=== PATIENT | female | born 1955 | race Two or more races ===

== ENCOUNTER 2024-05-07 08:07 | Outpatient (RCR) | payer MEDICARE, MEDICAID, SELFPAY ==
[2024-05-06 09:36] LABS: Basophils % (Auto) 1 % (0-2.5); Eosinophils % (Auto) 0 % (0-10); Hematocrit 32.9 % (36.0-46.0); Hemoglobin 10.8 g/dL (12.0-16.0); Immature Granulocytes % (Auto) 1 % (0-0); Immature Granulocytes Auto 0.03 Thou/mm3 (0.00-0.00); Lymphocytes # (Auto) 2.1 Thou/mm3 (1.0-4.8); Lymphocytes % (Auto) 38 % (10-50); Mean Corpuscular HGB Conc 32.8 g/dl (31.0-37.0); Mean Corpuscular Hemoglobin 30.1 pg (25.0-35.0); Mean Corpuscular Volume 92 fL (80-100); Monocytes # (Auto) 1.1 Thou/mm3 (0.0-0.8); Monocytes % (Auto) 20 % (0-12); Neutrophils # (Auto) 2.3 Thou/mm3 (1.8-7.7); Neutrophils % (Auto) 41 % (37-80); Nucleated Red Blood Cell % 0 /100 WBC (0); Platelet Count 462 Thou/mm3 (140-440); RDW Standard Deviation 51.6 fL (36.4-46.3); Red Blood Count 3.59 Miln/mm3 (4.00-5.20); White Blood Count 5.5 Thou/mm3 (3.6-11.0)
[2024-05-06 09:58] LABS: Alanine Aminotransferase 15 U/L (10-49); Albumin, Serum 4.4 gm/dL (3.4-4.8); Albumin/Globulin Ratio 1.9 (1.2-2.2); Alkaline Phosphatase 71 U/L (46-116); Anion Gap 6 (7-16); Aspartate Amino Transferase 19 U/L (0-34); BUN/Creatinine Ratio 10 Ratio (12-20); Bilirubin,Total 0.3 mg/dL (0.3-1.2); Blood Urea Nitrogen 5 mg/dL (9-23); Calcium 9.6 mg/dL (8.3-10.6); Calcium (Corrected) 9.6 mg/dL (8.5-10.1); Carbon Dioxide 24.5 mMol/L (20.0-31.0); Chloride 107 mMol/L (98-107); Creatinine (Component) 0.5 mg/dL (0.6-1.3); Globulin 2.3 gm/dL (2.3-3.5); Glucose 96 mg/dL (74-106); Osmolality,Calculated 271 (275-295); Potassium 3.7 mMol/L (3.4-5.1); Sodium 137 mMol/L (136-145); Thyroid Stimulating Hormone 0.13 uIU/mL (0.55-4.78); Total Protein 6.7 gm/dL (5.7-8.2); eGFR > 60 See Note
== END 2024-05-23 23:59 | disposition home or self-care (01) ==
LOC: SCTC 08:07
PROVIDERS: PCP Nurse Practitioner Family; Referring Provider Nurse Practitioner Family; Visit Provider Internal Medicine Hematology & Oncology
DX: Z51.11 Encounter for antineoplastic chemotherapy (principal); C50.412 Malignant neoplasm of upper-outer quadrant of left female breast; Z17.421 Hormone receptor negative with human epidermal growth factor receptor 2 negative status; E03.9 Hypothyroidism, unspecified; I10 Essential (primary) hypertension; E78.00 Pure hypercholesterolemia, unspecified; R11.2 Nausea with vomiting, unspecified; K59.00 Constipation, unspecified
CPT/HCPCS: 36591; 80053; 84443; 85025; 96367; 96375; 96411; 96413; 96415; 96417; A4216; J1453; J1642; J3490; J7050; J9000; J9075; J9271

== ENCOUNTER → 2024-06-04 | Outpatient (CLI) | payer MEDICARE, MEDICAID, SELFPAY ==
--- NOTE | 2024-06-04 13:30 | ECHO_ITS ---
Transthoracic Echo Report Ht (in): 60 Wt (lb): 138 Exam Location: Echo Lab Status: Preadmit Pewter Fabricator: Silva Wiley Indications: Procedure Performed: BP: / HR: Rhythm: Sinus Technical Quality: Fair MEASUREMENTS (Male / Female) Normal Values 2D ECHO LV Diastolic Diameter PLAX 3.8 cm 4.2 - 5.9 / 3.9 - 5.3 cm LV Systolic Diameter PLAX 2.7 cm IVS Diastolic Thickness 1.0 cm 0.6 - 1.0 / 0.6 - 0.9 cm LVPW Diastolic Thickness 1.0 cm 0.6 - 1.0 / 0.6 - 0.9 cm LV Relative Wall Thickness 0.5 LVOT Diameter 1.9 cm LA Volume Index 21.8 cm?/m? 16 - 28 cm?/m? Ascending Aorta Diameter 3.1 cm M-MODE Aortic Root Diameter MM 3.0 cm LA Systolic Diameter MM 2.9 cm LA Ao Ratio MM 1.0 AV Cusp Separation MM 2.2 cm DOPPLER AV Peak Velocity 116.0 cm/s AV Peak Gradient 5.4 mmHg AV Mean Gradient 3.0 mmHg AV Velocity Time Integral 24.7 cm LVOT Peak Velocity 113.0 cm/s LVOT Peak Gradient 5.1 mmHg LVOT Velocity Time Integral 22.9 cm AV Area Cont Eq vti 2.6 cm? AV Area Cont Eq pk 2.8 cm? MV Peak Velocity 106.0 cm/s MV Peak Gradient 4.5 mmHg MV Mean Velocity 74.0 cm/s MV Mean Gradient 2.0 mmHg MV Area PHT 4.2 cm? Mitral E Point Velocity 74.7 cm/s Mitral A Point Velocity 113.0 cm/s Mitral E to A Ratio 0.7 LV E' Lateral Velocity 10.2 cm/s Mitral E to LV E' Lateral Ratio 7.3 LV E' Septal Velocity 8.7 cm/s Mitral E to LV E' Septal Ratio 8.6 FINDINGS Left Ventricle Normal left ventricular size, wall thickness, systolic function with no obvious regional wall motion abnormalities. The ejection fraction is visually estimated at 55-60%. Right Ventricle The right ventricle is normal in size and systolic function. Left Atrium The left atrium is normal by two-dimensional, color flow and Doppler imaging with no structural abnormalities, no thrombus formation present. Right Atrium The right atrium is normal by two-dimensional imaging, color flow and Doppler imaging with no struct ural abnormalities, no thrombus formation present. Atrial Septum The interatrial septum appears normal with no evidence of a shunt. Aorta The aorta is normal by two-dimensional, color flow and Doppler interrogation. Mitral Valve The mitral valve is normal by two-dimensional, color flow and Doppler interrogation. There is trace mitral valve regurgitation. Aortic Valve The aortic valve is trileaflet and normal by two-dimensional, color flow and Doppler interrogation. There is trace aortic valve regurgitation. Tricuspid Valve The tricuspid valve is normal by two-dimensional, color flow and Doppler interrogation. There is tra ce tricuspid valve regurgitation. Pulmonic Valve The pulmonic valve is normal by two-dimensional, color flow and Doppler interrogation. There is no significant pulmonic valve regurgitation. Vessels The pulmonary artery appears normal. The inferior vena cava pulmonary and hepatic veins appear prachi l. Pericardium The pericardium is normal by two-dimensional imaging. There is no significant pericardial effusion. CONCLUSIONS Indication: Malignant neoplasm female breast Normal LV size and function. Stage I diastolic dysfunction. Estimated EF 55-60% Normal RV size and function. Trace MR, TR, AI. Chandan Riley (Electronically Signed) Final Date: 04 June 2024 18:09
== END | disposition home or self-care (01) ==
LOC: SDIM 13:07
PROVIDERS: PCP Nurse Practitioner Family; Referring Provider Internal Medicine Hematology & Oncology; Visit Provider Internal Medicine Hematology & Oncology
DX: I08.3 Combined rheumatic disorders of mitral, aortic and tricuspid valves (principal); C50.112 Malignant neoplasm of central portion of left female breast
CPT/HCPCS: 93306

== ENCOUNTER → 2024-06-15 | Outpatient (CLI) | payer MEDICARE, MEDICAID, SELFPAY ==
--- NOTE | 2024-06-15 13:00 | XR_ITS ---
Examination: Breast ultrasound, unilateral, left complete Date and time of exam: June 15, 2024 1308 hours INDICATIONS: Positive for left breast cancer November 21, 2023, bilateral breast sonography October 15, 2023 left breast suspicious mass 3.9 x 4.2 x 4.0 cm Technique: Real-time francis scale ultrasonographic imaging performed left breast including all 4 quadrants as well as nipple retroareolar and axillary region. Findings: 1:00 focus of architectural distortion 17 x 6 mm IMPRESSION: Focus of probable architectural distortion 1:00 position left breast 3-6 month left breast sonography follow-up strongly recommended
== END | disposition home or self-care (01) ==
LOC: CDIM 12:41
PROVIDERS: PCP Nurse Practitioner Family; Referring Provider Internal Medicine Hematology & Oncology; Visit Provider Internal Medicine Hematology & Oncology
DX: C50.919 Malignant neoplasm of unspecified site of unspecified female breast (principal); C50.112 Malignant neoplasm of central portion of left female breast
CPT/HCPCS: 76641

== ENCOUNTER 2024-06-18 13:01 | Outpatient (RCR) | payer MEDICARE, MEDICAID, SELFPAY ==
[2024-05-27 15:52] LABS: Basophils % (Auto) 1 % (0-2.5); Eosinophils % (Auto) 1 % (0-10); Hematocrit 31.1 % (36.0-46.0); Hemoglobin 10.4 g/dL (12.0-16.0); Immature Granulocytes % (Auto) 1 % (0-0); Immature Granulocytes Auto 0.06 Thou/mm3 (0.00-0.00); Lymphocytes # (Auto) 2.3 Thou/mm3 (1.0-4.8); Lymphocytes % (Auto) 38 % (10-50); Mean Corpuscular HGB Conc 33.4 g/dl (31.0-37.0); Mean Corpuscular Hemoglobin 29.6 pg (25.0-35.0); Mean Corpuscular Volume 89 fL (80-100); Monocytes % (Auto) 17 % (0-12); Neutrophils # (Auto) 2.6 Thou/mm3 (1.8-7.7); Neutrophils % (Auto) 43 % (37-80); Nucleated Red Blood Cell % 0 /100 WBC (0); Platelet Count 366 Thou/mm3 (140-440); RDW Standard Deviation 51.1 fL (36.4-46.3); Red Blood Count 3.51 Miln/mm3 (4.00-5.20); White Blood Count 6.1 Thou/mm3 (3.6-11.0)
[2024-05-27 16:20] LABS: Alanine Aminotransferase 12 U/L (10-49); Albumin, Serum 4.5 gm/dL (3.4-4.8); Alkaline Phosphatase 64 U/L (46-116); Anion Gap 9 (7-16); Aspartate Amino Transferase 10 U/L (0-34); BUN/Creatinine Ratio 15 Ratio (12-20); Bilirubin,Total 0.2 mg/dL (0.3-1.2); Blood Urea Nitrogen 9 mg/dL (9-23); Calcium 9.7 mg/dL (8.3-10.6); Calcium (Corrected) 9.7 mg/dL (8.5-10.1); Carbon Dioxide 24.5 mMol/L (20.0-31.0); Chloride 106 mMol/L (98-107); Creatinine (Component) 0.6 mg/dL (0.6-1.3); Globulin 2.2 gm/dL (2.3-3.5); Glucose 102 mg/dL (74-106); Osmolality,Calculated 276 (275-295); Potassium 3.5 mMol/L (3.4-5.1); Sodium 139 mMol/L (136-145); Thyroid Stimulating Hormone 16.76 uIU/mL (0.55-4.78); Total Protein 6.7 gm/dL (5.7-8.2); eGFR > 60 See Note
[2024-06-15 15:45] LABS: Basophils % (Auto) 0 % (0-2.5); Eosinophils % (Auto) 0 % (0-10); Hematocrit 31.9 % (36.0-46.0); Hemoglobin 10.7 g/dL (12.0-16.0); Immature Granulocytes % (Auto) 2 % (0-0); Immature Granulocytes Auto 0.09 Thou/mm3 (0.00-0.00); Lymphocytes # (Auto) 1.6 Thou/mm3 (1.0-4.8); Lymphocytes % (Auto) 32 % (10-50); Mean Corpuscular HGB Conc 33.5 g/dl (31.0-37.0); Mean Corpuscular Hemoglobin 29.7 pg (25.0-35.0); Mean Corpuscular Volume 89 fL (80-100); Monocytes # (Auto) 0.9 Thou/mm3 (0.0-0.8); Monocytes % (Auto) 16 % (0-12); Neutrophils # (Auto) 2.6 Thou/mm3 (1.8-7.7); Neutrophils % (Auto) 50 % (37-80); Nucleated Red Blood Cell % 0 /100 WBC (0); Platelet Count 318 Thou/mm3 (140-440); RDW Standard Deviation 52.7 fL (36.4-46.3); White Blood Count 5.2 Thou/mm3 (3.6-11.0)
[2024-06-15 16:24] LABS: Alanine Aminotransferase 16 U/L (10-49); Albumin, Serum 4.6 gm/dL (3.4-4.8); Alkaline Phosphatase 66 U/L (46-116); Anion Gap 7 (7-16); Aspartate Amino Transferase 11 U/L (0-34); BUN/Creatinine Ratio 18 Ratio (12-20); Bilirubin,Total 0.2 mg/dL (0.3-1.2); Blood Urea Nitrogen 9 mg/dL (9-23); Calcium 9.8 mg/dL (8.3-10.6); Calcium (Corrected) 9.8 mg/dL (8.5-10.1); Carbon Dioxide 25.9 mMol/L (20.0-31.0); Chloride 107 mMol/L (98-107); Creatinine (Component) 0.5 mg/dL (0.6-1.3); Free T3 2.7 pg/mL (2.3-4.2); Globulin 2.3 gm/dL (2.3-3.5); Glucose 110 mg/dL (74-106); Osmolality,Calculated 279 (275-295); Potassium 3.7 mMol/L (3.4-5.1); Sodium 140 mMol/L (136-145); Thyroid Stimulating Hormone 1.44 uIU/mL (0.55-4.78); Total Protein 6.9 gm/dL (5.7-8.2); eGFR > 60 See Note
--- NOTE | 2024-06-21 15:55 | CTCFLWUP_ITS ---
Patient: MARYA GOLDEN : 1955 Page 5 of 6 FOLLOW UP NOTE DATE OF SERVICE: 06/15/2024 NAME: MARYA GOLDEN ACCOUNT: [id number] : 1955 AGE: 68 INTERVAL HISTORY: ONCOLOGY HISTORY: DIAGNOSIS: Malignant neoplasm of central portion of left female breast [ICD10] C50.112 DATE OF DIAGNOSIS: STAGE/TNM: TREATMENT HISTORY: Care?Plan Start?Date Cycle Day Intent TNBC?Pembro?17?cy?TaxCar?4?cy?AC?4?cy?Keynote?522 12/31/2023 1 21 Induction-Primary Reclast 12/25/2023 1 365 Palliative HISTORY OF PRESENT ILLNESS: Marya Golden is a 68-year-old SPA speaking female with history of hypothyroidism, hypertensio n has the following oncology history. patient is here for follow-up. She completed 4 cycles of Taxo l and carboplatin chemotherapy along with pembrolizumab. She has tolerated treatment well. She says she does not feel any pain in her breast anymore 06/11/2022: Ms. Golden had bilateral screening mammograms done 10/17/2022: Left breast diagnostic mammogram and ultrasound Ms. Golden was aware that she needs to have the biopsy done. Unfortunately she decided not to have it . The reason she states is that she is scared. 10/15/2023: Bilateral breast ultrasound? 11/21/2023: Ultrasound-guided percutaneous biopsy of the left breast nodule 12/05/2023: PET/CT scan? 12/06/2023: Left axillary ultrasound 12/09/2023: Bone density test 12/18/2023: Echocardiogram showed LVEF of 60-65%. 12/31/2023: Ms. Golden is started on neoadjuvant pembrolizumab, Taxol and carboplatin chemotherapy. OTHER MEDICAL HISTORY/CONDITIONS: Breast Cancer- infiltrating ductal carcinoma- dx 11/21/23 HTN Hyperlipidemia Hypothyroid Osteoarthritis Right ankle fracture repair - 15 yrs ago ?Clone Other Med Hx? FAMILY HISTORY: Sibling:?Twin?sister?-?breast?-?dx?55 ?Clone Family Hx? 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 MEDICATIONS: 1. Citracal + D Slow Release - 600 mg-12.5 mcg (500 unit) 1 tab one tab po twice a day 2. Compazine - 10 mg 1 tab Daily 3. diclofenac sodium - 1 % Four times a day 4. levothyroxine - 50 mcg 0.5 tab Daily 5. losartan - 100 mg 1 tab Daily 6. losartan - 50 mg 1 tab Daily 7. ondansetron - 4 mg tab Daily 8. ondansetron - 8 mg 1 tab 1 tablet every 8 hrs as needed 9. One A Day Vitamin - 1 tab Daily 10. Senna Plus - 8.6-50 mg 1 tab Daily 11. simvastatin - 20 mg 1 tab Every day before sleep 12. TAB A MARIBELL - 1 tab Daily?Palabra Meds? Medications Last Reconciled by Dixie Liao MA on 04/15/2024 ALLERGIES: No Known Drug Allergies REVIEW OF SYSTEMS: A complete 14-point review of systems was performed and is negative except as noted in interval histo ry. PHYSICAL EXAMINATION: VITAL SIGNS: Temperature?98, B/P?130/88, Oxygen?Saturation?98% Weight?139?lbs (Change?since?05/28/24:? -1.8?lbs) PAIN: 0 - No pain GENERAL APPEARANCE: Appears well, in no apparent distress, appropriately interactive. HEENT: Normocephalic, no temporal wasting, normal conjunctiva, no scleral icterus, normal hearing, li ps without lesions, neck normal range of motion. CARDIOVASCULAR: Not assessed. PULMONARY: Normal respiratory effort, no respiratory distress or use of accessory muscles, speaking i n full sentences, no tachypnea. EXTREMITIES: No pedal edema or cyanosis. SKIN: Normal skin appearance. NEUROLOGIC: Alert and oriented x4. PSHYCHIATRIC: Appropriate affect, mood normal, behavior normal, intact thought and speech. 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 Patient is doing well with no palpable mass Patient will continue adjuvant Keytruda Referral to surgeon for procedure Patient want to get reconstruction #2 hypothyroidism iatrogenic Continue Levoxyl #3 hypertension hypercholesterolemia to be followed by PCP ORDERS: Referral placed to general surgery left breast surgery MYRTLE Endocrine referral for hypothyroidism Plastic surgeon for reconstruction Echocardiogram for follow-up as being on Herceptin which is a cardio toxic CBC CMP TSH T4 RETURN TO CLINIC: I will see her back in the clinic in 2 months. BILLING AND COMPLIANCE: I reviewed external records from providers outside my specialty as summarized above. I spent a total of 50 minutes on this patient?s care on the day of their visit excluding time spent related to any bi lled procedures. This time includes time spent with the patient as well as time spent documenting in the medical record, reviewing patients records and tests, obtaining history, placing orders, communi cating with other healthcare professionals, counseling the patient, family or caregiver, and/or care coordination for the diagnoses above. Electronically Signed by: Neri Frank MD T: 3:52 PM CC: PCP: Neri Frank Referring: Neri Frank This document was completed utilizing speech recognition software. Grammatical errors, random word in sertions, pronoun errors, and incomplete sentences are an occasional consequence of this system due t o software limitations, ambient noise, and hardware issues. Any formal questions or concerns about th e content, text or information contained within the body of this dictation should be directly address ed to the provider for clarification.
== END 2024-06-23 23:59 | disposition home or self-care (01) ==
LOC: SCTC 13:01
PROVIDERS: PCP Nurse Practitioner Family; Referring Provider Internal Medicine Hematology & Oncology; Visit Provider Internal Medicine Hematology & Oncology
DX: Z51.11 Encounter for antineoplastic chemotherapy (principal); C50.412 Malignant neoplasm of upper-outer quadrant of left female breast; Z17.421 Hormone receptor negative with human epidermal growth factor receptor 2 negative status; E03.9 Hypothyroidism, unspecified; I10 Essential (primary) hypertension; E78.00 Pure hypercholesterolemia, unspecified
CPT/HCPCS: 36591; 80053; 84443; 84481; 85025; 96367; 96411; 96413; 96417; 99213; A4216; J1100; J1453; J1642; J2405; J3490; J7040; J7050; J9000; J9075; J9271; G0463

== ENCOUNTER → 2024-07-08 | Outpatient (CLI) | payer MEDICARE, MEDICAID, SELFPAY ==
[2024-07-08 13:41] LABS: Basophils % (Auto) 1 % (0-2.5); Eosinophils # (Auto) 0.2 Thou/mm3 (0.0-0.5); Eosinophils % (Auto) 4 % (0-10); Hematocrit 35.5 % (36.0-46.0); Hemoglobin 11.6 g/dL (12.0-16.0); Immature Granulocytes % (Auto) 0 % (0-0); Immature Granulocytes Auto 0.02 Thou/mm3 (0.00-0.00); Lymphocytes # (Auto) 1.7 Thou/mm3 (1.0-4.8); Lymphocytes % (Auto) 31 % (10-50); Mean Corpuscular HGB Conc 32.7 g/dl (31.0-37.0); Mean Corpuscular Hemoglobin 29.3 pg (25.0-35.0); Mean Corpuscular Volume 90 fL (80-100); Monocytes # (Auto) 0.8 Thou/mm3 (0.0-0.8); Monocytes % (Auto) 14 % (0-12); Neutrophils # (Auto) 2.8 Thou/mm3 (1.8-7.7); Neutrophils % (Auto) 50 % (37-80); Nucleated Red Blood Cell % 0 /100 WBC (0); Platelet Count 240 Thou/mm3 (140-440); RDW Standard Deviation 54.4 fL (36.4-46.3); Red Blood Count 3.96 Miln/mm3 (4.00-5.20); White Blood Count 5.5 Thou/mm3 (3.6-11.0)
[2024-07-08 14:13] LABS: Alanine Aminotransferase 21 U/L (10-49); Albumin, Serum 4.5 gm/dL (3.4-4.8); Albumin/Globulin Ratio 2.3 (1.2-2.2); Alkaline Phosphatase 76 U/L (46-116); Anion Gap 8 (7-16); Aspartate Amino Transferase 18 U/L (0-34); BUN/Creatinine Ratio 18 Ratio (12-20); Bilirubin,Total 0.2 mg/dL (0.3-1.2); Blood Urea Nitrogen 11 mg/dL (9-23); Calcium 9.9 mg/dL (8.3-10.6); Calcium (Corrected) 9.9 mg/dL (8.5-10.1); Carbon Dioxide 27.1 mMol/L (20.0-31.0); Chloride 105 mMol/L (98-107); Creatinine (Component) 0.6 mg/dL (0.6-1.3); Glucose 101 mg/dL (74-106); Osmolality,Calculated 278 (275-295); Potassium 4.1 mMol/L (3.4-5.1); Sodium 140 mMol/L (136-145); Thyroid Stimulating Hormone 0.49 uIU/mL (0.55-4.78); Total Protein 6.5 gm/dL (5.7-8.2); eGFR > 60 See Note
== END | disposition home or self-care (01) ==
LOC: SCTO 11:55
PROVIDERS: PCP Nurse Practitioner Family; Referring Provider Internal Medicine Hematology & Oncology; Visit Provider Internal Medicine Hematology & Oncology
DX: E03.2 Hypothyroidism due to medicaments and other exogenous substances (principal); C50.112 Malignant neoplasm of central portion of left female breast
CPT/HCPCS: 36415; 80053; 84443; 85025

== ENCOUNTER 2024-07-09 08:07 | Outpatient (RCR) | payer MEDICARE, MEDICAID, SELFPAY | END 2024-07-24 23:59 | disposition home or self-care (01) | LOC: SCTC 08:07 | PROVIDERS: PCP Nurse Practitioner Family; Referring Provider Nurse Practitioner Family; Visit Provider Internal Medicine Hematology & Oncology | DX: Z51.11 Encounter for antineoplastic chemotherapy (principal); C50.412 Malignant neoplasm of upper-outer quadrant of left female breast; Z17.421 Hormone receptor negative with human epidermal growth factor receptor 2 negative status; E03.9 Hypothyroidism, unspecified; I10 Essential (primary) hypertension; E78.00 Pure hypercholesterolemia, unspecified | CPT/HCPCS: 96365; 96413; A4216; J1642; J9271 ==

== ENCOUNTER 2024-07-14 08:35 | Day surgery (SDC) | payer MEDICARE, MEDICAID, SELFPAY ==
[2024-07-13 11:01] VITALS: BMI 27.7
--- NOTE | 2024-07-13 11:24 | EKG_ITS ---
[facility] Test Date: 2024-07-13 Pat Name: MRAYA PONCE Department: Room: - Gender: Female Veneer Sawyer: PHILOMENA : 1955 Requested By: Jesus Nash Order Number: [id number] Reading MD: Jesus Nash Measurements Intervals [place] Rate: 68 P: 53 WV: 138 QRS: 54 QRSD: 61 T: 58 QT: 402 QTc: 428 Interpretive Statements SINUS RHYTHM Compared to ECG 12/02/2023 14:36:56 Sinus bradycardia no longer present /store/S0/[id number]/[id number].pdf
[2024-07-13 12:22] LABS: Basophils # (Auto) 0.1 Thou/mm3 (0.0-0.2); Basophils % (Auto) 1 % (0-2.5); Eosinophils # (Auto) 0.3 Thou/mm3 (0.0-0.5); Eosinophils % (Auto) 5 % (0-10); Hematocrit 36.9 % (36.0-46.0); Hemoglobin 12.1 g/dL (12.0-16.0); Immature Granulocytes % (Auto) 0 % (0-0); Immature Granulocytes Auto 0.02 Thou/mm3 (0.00-0.00); Lymphocytes % (Auto) 36 % (10-50); Mean Corpuscular HGB Conc 32.8 g/dl (31.0-37.0); Mean Corpuscular Hemoglobin 29.1 pg (25.0-35.0); Mean Corpuscular Volume 89 fL (80-100); Monocytes # (Auto) 0.7 Thou/mm3 (0.0-0.8); Monocytes % (Auto) 13 % (0-12); Neutrophils # (Auto) 2.5 Thou/mm3 (1.8-7.7); Neutrophils % (Auto) 44 % (37-80); Nucleated Red Blood Cell % 0 /100 WBC (0); Platelet Count 276 Thou/mm3 (140-440); RDW Standard Deviation 53.3 fL (36.4-46.3); Red Blood Count 4.16 Miln/mm3 (4.00-5.20); White Blood Count 5.6 Thou/mm3 (3.6-11.0)
[2024-07-13 12:28] LABS: Partial Thromboplastin Time 25.6 Seconds (22.0-36.0); Prothrombin Time 10.6 Seconds (9.0-12.2)
[2024-07-14] VITALS (12 sets, daily range): BP systolic 134–176; BP diastolic 87–117; PULSE 66–88; RESP 12–17; TEMP 36.2–36.8; O2SAT 96–99; BMI 27.1
--- NOTE | 2024-07-14 | XR_ITS ---
Examination: Mammogram breast tissue specimen TECHNIQUE: Single mammographic view of the breast tissue specimen Exam date and time: July 14, 2024 1421 hours INDICATIONS: Postop excision biopsy-positive lesion positive for carcinoma left breast 1:00 position with breast biopsy marker FINDINGS: Mammogram breast tissue specimen demonstrates the breast marker within the specimen with adequate margins IMPRESSION: Mammogram breast tissue specimen demonstrates the breast biopsy marker within the specimen with adequate margins
[2024-07-14] MEDS: RINGERS LACTATED 1000 ML 1,000 ML 20 ML IV (09:14)
[2024-07-14 09:21] LABS: Alanine Aminotransferase 21 U/L (10-49); Albumin, Serum 4.7 gm/dL (3.4-4.8); Albumin/Globulin Ratio 1.7 (1.2-2.2); Alkaline Phosphatase 81 U/L (46-116); Anion Gap 8 (7-16); Aspartate Amino Transferase 16 U/L (0-34); BUN/Creatinine Ratio 16 Ratio (12-20); Bilirubin,Total 0.4 mg/dL (0.3-1.2); Blood Urea Nitrogen 11 mg/dL (9-23); Calcium 10.3 mg/dL (8.3-10.6); Calcium (Corrected) 10.3 mg/dL (8.5-10.1); Chloride 106 mMol/L (98-107); Creatinine (Component) 0.7 mg/dL (0.6-1.3); Estimated Creatinine Clearance 63.8 mL/min (>60); Globulin 2.8 gm/dL (2.3-3.5); Glucose 110 mg/dL (74-106); Osmolality,Calculated 283 (275-295); Sodium 142 mMol/L (136-145); Total Protein 7.5 gm/dL (5.7-8.2); eGFR > 60 See Note
--- NOTE | 2024-07-14 10:17 | XR_ITS ---
Examination: Ultrasound-guided needle localization biopsy positive for carcinoma lesion 1:00 left breast Ultrasound left breast Exam date and time: July 14, 2024 1047 hours INDICATIONS: Preop surgical excision biopsy positive for carcinoma lesion 1:00 position left breast TECHNIQUE AND FINDINGS: Informed consent provided. Timeout performed. Skin prepped over the left breast sterile drape applied hand hygiene ultrasound sterile technique Utilizing ultrasonographic guidance and after administering local anesthesia with lidocaine, 5 cm Kopan's needle placed immediately at the breast marker 1:00 position left breast 1 cc methylene blue introduced Where introduced and needle withdrawn Estimated blood loss 1 cc IMPRESSION: Successful ultrasound-guided needle localization biopsy positive for carcinoma lesion 1:00 position left breast
--- NOTE | 2024-07-14 10:30 | XR_ITS ---
Examination: Nuclear medicine lymph glands imaging left breast [place] lymph node study Exam date and time: July 14, 2024 10:30 AM INDICATIONS: Left breast cancer diagnosis, post treatment, preop surgical resection at the breast marker site, lymph node dissection TECHNIQUE AND FINDINGS: Informed consent provided. Timeout performed. Skin prepped left breast in hygiene ultrasound sterile technique 1% lidocaine administered for local anesthesia is subareolar Introduction 2.0 mCi technetium 99m filtered sulfur colloid No imaging Estimated blood loss 0 cc IMPRESSION: Successful sentinel lymph node study left breast
--- NOTE | 2024-07-14 14:55 | SUR.PHASEI ---
6918 Patient arrived to recovery resting comfortably in [facility], drowsy and able to arouse with verbal prompting, breathing unlabored, vital signs stable, denies pain, dressing intact to chest; 10F SHAILA drain with drain sponge; contains serosanguineous fluid in drain, fluffs, breast binder, no bleeding noted, lung sounds clear upon auscultation, bilateral radial pulses present when palpated, report received from Jessica LOUIE and Dr. Menchaca
--- NOTE | 2024-07-14 14:56 | PD.SUROPNT ---
Date of Procedure 07/14/24 Pre Op Diagnosis Infiltrating ductal carcinoma of the left breast over the upper and outer quadrant treated with chemotherapy Post Op Diagnosis Same Procedure Guidewire localization and partial mastectomy of the left breast mass [place] node biopsy of the left axilla Findings Patient was found to have 1 sentinel node measuring about 1.5 cm in diameter on the axilla which was removed using a neoprobe. The lesion over the breast was some scar tissue along with the marker used at the time of biopsy which was Procedure Description The patient underwent guidewire localization of the lesion over the upper and outer quadrant of the left breast by Dr. Rudolph. Because of the neoadjuvant chemotherapy the palpable mass has completely disappeared and it is not even easily seen on the mammogram. However the residual cancer was going to be removed on therefore guidewire was placed in the x-ray suite. Patient also had a sentinel node injection of the left breast. Then she was brought to the operating room and LMA anesthesia was given. Timeout is performed. Incision was made over the left axilla for about 6 cm. Using neoprobe I was able to identify 1 lymph node deep in the left axilla probably in the level 1 area. Diligent search was made for any additional notes by using neoprobe but none was found. Then the axillary tissue was closed with 3-0 chromic for the deeper tissues and the skin was closed with 4-0 Monocryl. I injected local anesthesia with half percent Marcaine for analgesia before closing. Then attention was turned onto the breast where the guidewire was inserted over the left breast upper and outer quadrant. I made an incision parallel to the circumareolar area but is maybe a centimeter away from the circumareolar area. This incision was curved and was about 5 to 6 cm in length. Using retractors I dissected out the breast tissue and identified the methylene blue which was injected by the radiologist. Careful dissection was carried out without dislodging the guidewire. Patient is found to have some hardened scar tissue which I felt was representing the residual cancer. I removed tissues surrounding the guidewire tip as well as the hardened area on the breast. Specimen radiograph showed that the marker used by the radiologist was removed and right in the center of the specimen. Then bleeding points were controlled with cautery and left in #10 round Zaheer-Barclay in the breast. The deeper breast tissues could not be approximated because of the large cavity but the subcutaneous tissue was closed with 3-0 chromic. Skin was closed with 4-0 Monocryl after injecting half percent Marcaine for analgesia. Dressing was applied with Adaptic and fluff and compression with breast binder and patient tolerated the procedure well Anesthesia other Pathology / specimen Other (1. [place] node left axilla, #2 left breast tissue containing residual cancer and marker) IVF Infused 1,000 Estimated Blood Loss 100 Surgeon Nay Potter MD Surgical Staff Operation Date: 07/14/24 12:00 Case Staff Anesthesiologist: Darrick Menchaca supervisor coin machine: Belgica Rivera
[2024-07-14] MEDS: ACETAMINOPHEN IVPB 1,000 MG/100 ML VIAL 250 MG IV (15:56)
--- NOTE | 2024-07-14 16:36 | SUR.PHASEII ---
1636 Patient meets discharge criteria from recovery, awake and alert, breathing unlabored, vital signs stable, denies pain, dressing intact; no bleeding noted, patient and family educated on how to drain and care for SHAILA drain; both receptive, patient drinking water; tolerating well, denies nausea, patient assisted with dressing into her clothing by this program writer, discharge instructions given to patient and patients daughter/son, patient signed limited proficiency statement for daughter to label tacker [place] to her, daughter signed discharge instructions. Patient given all her belongings prior to discharge, transported via wheelchair and left in a private vehicle.
== END 2024-07-14 16:36 | disposition home or self-care (01) ==
LOC: S2EX 08:49 → SIRX 10:24
PROVIDERS: PCP Nurse Practitioner Family; Referring Provider Surgery; Visit Provider Surgery
PROC: (CPT 19125; principal; 2024-07-14 11:45)
DX: C50.412 Malignant neoplasm of upper-outer quadrant of left female breast (principal); Z01.812 Encounter for preprocedural laboratory examination
CPT/HCPCS: 38500; 19125; 36415; 76098; 80053; 85025; 85610; 85730; 93005; A4217; A4648; A4649; A9541; J0131; J1100; J1885; J2250; J2405; J2704; J3010; J3490; J7120

== ENCOUNTER → 2024-07-29 | Outpatient (CLI) | payer MEDICARE, MEDICAID, SELFPAY ==
[2024-07-29 13:43] LABS: Basophils % (Auto) 1 % (0-2.5); Eosinophils # (Auto) 0.2 Thou/mm3 (0.0-0.5); Eosinophils % (Auto) 3 % (0-10); Hematocrit 38.1 % (36.0-46.0); Hemoglobin 12.2 g/dL (12.0-16.0); Immature Granulocytes % (Auto) 0 % (0-0); Immature Granulocytes Auto 0.01 Thou/mm3 (0.00-0.00); Lymphocytes # (Auto) 1.6 Thou/mm3 (1.0-4.8); Lymphocytes % (Auto) 26 % (10-50); Mean Corpuscular Hemoglobin 28.6 pg (25.0-35.0); Mean Corpuscular Volume 89 fL (80-100); Monocytes # (Auto) 0.6 Thou/mm3 (0.0-0.8); Monocytes % (Auto) 9 % (0-12); Neutrophils # (Auto) 3.7 Thou/mm3 (1.8-7.7); Neutrophils % (Auto) 61 % (37-80); Nucleated Red Blood Cell % 0 /100 WBC (0); Platelet Count 259 Thou/mm3 (140-440); RDW Standard Deviation 51.5 fL (36.4-46.3); Red Blood Count 4.27 Miln/mm3 (4.00-5.20); White Blood Count 6.1 Thou/mm3 (3.6-11.0)
[2024-07-29 14:03] LABS: Alanine Aminotransferase 26 U/L (10-49); Albumin, Serum 4.4 gm/dL (3.4-4.8); Albumin/Globulin Ratio 1.8 (1.2-2.2); Alkaline Phosphatase 97 U/L (46-116); Anion Gap 8 (7-16); Aspartate Amino Transferase 23 U/L (0-34); BUN/Creatinine Ratio 15 Ratio (12-20); Bilirubin,Total 0.4 mg/dL (0.3-1.2); Blood Urea Nitrogen 9 mg/dL (9-23); Calcium 9.4 mg/dL (8.3-10.6); Calcium (Corrected) 9.4 mg/dL (8.5-10.1); Carbon Dioxide 26.6 mMol/L (20.0-31.0); Chloride 106 mMol/L (98-107); Creatinine (Component) 0.6 mg/dL (0.6-1.3); Globulin 2.4 gm/dL (2.3-3.5); Glucose 106 mg/dL (74-106); Osmolality,Calculated 279 (275-295); Potassium 4.2 mMol/L (3.4-5.1); Sodium 141 mMol/L (136-145); Total Protein 6.8 gm/dL (5.7-8.2); eGFR > 60 See Note
== END | disposition home or self-care (01) ==
PROVIDERS: Referring Provider Internal Medicine Hematology & Oncology; Visit Provider Internal Medicine Hematology & Oncology
DX: C50.112 Malignant neoplasm of central portion of left female breast (principal)
CPT/HCPCS: 36415; 80053; 85025

== ENCOUNTER → 2024-08-04 | Outpatient (CLI) | payer MEDICARE, MEDICAID, SELFPAY ==
[2024-08-04 11:43] LABS: Basophils % (Auto) 1 % (0-2.5); Eosinophils # (Auto) 0.3 Thou/mm3 (0.0-0.5); Eosinophils % (Auto) 6 % (0-10); Hematocrit 36.2 % (36.0-46.0); Hemoglobin 11.8 g/dL (12.0-16.0); Immature Granulocytes % (Auto) 0 % (0-0); Immature Granulocytes Auto 0.02 Thou/mm3 (0.00-0.00); Lymphocytes % (Auto) 39 % (10-50); Mean Corpuscular HGB Conc 32.6 g/dl (31.0-37.0); Mean Corpuscular Hemoglobin 28.7 pg (25.0-35.0); Mean Corpuscular Volume 88 fL (80-100); Monocytes # (Auto) 0.5 Thou/mm3 (0.0-0.8); Monocytes % (Auto) 9 % (0-12); Neutrophils # (Auto) 2.2 Thou/mm3 (1.8-7.7); Neutrophils % (Auto) 44 % (37-80); Nucleated Red Blood Cell % 0 /100 WBC (0); Platelet Count 275 Thou/mm3 (140-440); RDW Standard Deviation 49.1 fL (36.4-46.3); Red Blood Count 4.11 Miln/mm3 (4.00-5.20)
[2024-08-04 12:23] LABS: Alanine Aminotransferase 21 U/L (10-49); Albumin, Serum 4.3 gm/dL (3.4-4.8); Albumin/Globulin Ratio 1.7 (1.2-2.2); Alkaline Phosphatase 81 U/L (46-116); Anion Gap 7 (7-16); Aspartate Amino Transferase 21 U/L (0-34); BUN/Creatinine Ratio 14 Ratio (12-20); Bilirubin,Total 0.3 mg/dL (0.3-1.2); Blood Urea Nitrogen 10 mg/dL (9-23); Carbon Dioxide 26.5 mMol/L (20.0-31.0); Chloride 109 mMol/L (98-107); Creatinine (Component) 0.7 mg/dL (0.6-1.3); Globulin 2.5 gm/dL (2.3-3.5); Glucose 82 mg/dL (74-106); Osmolality,Calculated 281 (275-295); Potassium 4.6 mMol/L (3.4-5.1); Sodium 142 mMol/L (136-145); Thyroid Stimulating Hormone 2.63 uIU/mL (0.55-4.78); Total Protein 6.8 gm/dL (5.7-8.2); eGFR > 60 See Note
== END | disposition home or self-care (01) ==
PROVIDERS: PCP Nurse Practitioner Family; Referring Provider Internal Medicine Hematology & Oncology; Visit Provider Internal Medicine Hematology & Oncology
DX: C50.112 Malignant neoplasm of central portion of left female breast (principal)
CPT/HCPCS: 36415; 80053; 84443; 85025

== ENCOUNTER 2024-08-19 09:09 | Outpatient (CLI) | payer MEDICARE, MEDICAID, SELFPAY ==
[2024-08-19] VITALS (7 sets, daily range): BP systolic 120–153; BP diastolic 74–90; PULSE 59–67; RESP 16–21; TEMP 36.4–36.5; O2SAT 96–98; BMI 27.9
--- NOTE | 2024-08-19 10:00 | XR_ITS ---
Exam: Left port check/evaluation. DATE: 08/19/2024, 10:07 AM INDICATION: Port not working. Fluoroscopy time: 2.4 minutes Dose:2.4 18.42 mGy FINDINGS: After discussion of risks and benefits informed consent was obtained. Patient was brought to the angiography suite and placed supine on the exam table. The area around the existing left port was cleaned and draped in normal sterile surgical fashion. Preliminary fluoroscopic guidance demonstrate a left-sided port positioned within the left thorax with tubing appearing appropriately connected to the port. Port was accessed with a Chowdhury needle. No blood could be aspirated out. No normal saline or contrast could be injected into the port. Chowdhury needle was removed. IMPRESSION: Nonfunctioning port as above. Surgical consult is recommended.
--- NOTE | 2024-08-19 11:38 | PC.NURSE ---
1119 patient is awake, alert, breathing unlabored, s/p port check by dr valentino, patient discharged home with all belongings accompanied by daughter Jessy. Pt will make follow up appointment with surgeon who put port a cath in for further instructions.
== END 2024-08-19 11:19 | disposition home or self-care (01) ==
PROVIDERS: Referring Provider Internal Medicine Hematology & Oncology; Visit Provider Internal Medicine Hematology & Oncology
DX: T82.594A Other mechanical complication of infusion catheter, initial encounter (principal); C50.112 Malignant neoplasm of central portion of left female breast; C50.919 Malignant neoplasm of unspecified site of unspecified female breast
CPT/HCPCS: 36598; 77001; 82565; 84520; 85025; 85610; 85730; Q9967

== ENCOUNTER 2024-08-20 13:19 | Outpatient (RCR) | payer MEDICARE, MEDICAID, SELFPAY | END 2024-08-21 23:59 | disposition home or self-care (01) | LOC: SCTC 13:19 | PROVIDERS: PCP Nurse Practitioner Family; Referring Provider Internal Medicine Hematology & Oncology; Visit Provider Radiology Therapeutic Radiology | DX: Z51.11 Encounter for antineoplastic chemotherapy (principal); C50.412 Malignant neoplasm of upper-outer quadrant of left female breast; Z17.421 Hormone receptor negative with human epidermal growth factor receptor 2 negative status; Z90.12 Acquired absence of left breast and nipple | CPT/HCPCS: 77014; 77290; 77334; 96413; 99213; J7050; J9271; G0463 ==

== ENCOUNTER → 2024-08-20 | Outpatient (CLI) | payer MEDICARE, MEDICAID, SELFPAY ==
--- NOTE | 2024-08-20 14:30 | ECHO_ITS ---
Transthoracic Echo Report Ht (in): 60 Wt (lb): 143 Exam Location: Echo Lab Status: Preadmit Cable Television Installer: ZAFAR Reyes^^^^ Indications: Procedure Performed: BP: 128 / 74 HR: 74 Rhythm: Sinus Technical Quality: Fair MEASUREMENTS (Male / Female) Normal Values 2D ECHO LV Diastolic Diameter PLAX 3.6 cm 4.2 - 5.9 / 3.9 - 5.3 cm LV Systolic Diameter PLAX 2.2 cm IVS Diastolic Thickness 1.0 cm 0.6 - 1.0 / 0.6 - 0.9 cm LVPW Diastolic Thickness 1.0 cm 0.6 - 1.0 / 0.6 - 0.9 cm LV Relative Wall Thickness 0.6 LVOT Diameter 1.6 cm Aortic Root Diameter 2.9 cm LA Systolic Diameter LX 3.0 cm 3.0 - 4.0 / 2.7 - 3.8 cm LA Volume Index 31.2 cm?/m? 16 - 28 cm?/m? Ascending Aorta Diameter 2.9 cm DOPPLER AV Peak Velocity 144.0 cm/s AV Peak Gradient 8.3 mmHg AV Mean Gradient 5.0 mmHg AV Velocity Time Integral 38.4 cm AI Peak Velocity 289.0 cm/s AI Peak Gradient 33.4 mmHg AI Pressure Half Time 306.0 ms LVOT Peak Velocity 112.0 cm/s LVOT Peak Gradient 5.0 mmHg LVOT Velocity Time Integral 29.5 cm LVOT Cardiac Index 2615.7 cm?/min?m? AV Area Cont Eq vti 1.5 cm? AV Area Cont Eq pk 1.6 cm? MV Area PHT 2.5 cm? MR Peak Velocity 339.0 cm/s MR Peak Gradient 46.0 mmHg Mitral E Point Velocity 75.7 cm/s Mitral A Point Velocity 88.3 cm/s Mitral E to A Ratio 0.9 LV E' Lateral Velocity 11.1 cm/s Mitral E to LV E' Lateral Ratio 6.8 LV E' Septal Velocity 7.6 cm/s Mitral E to LV E' Septal Ratio 9.9 TR Peak Velocity 240.2 cm/s TR Peak Gradient 23.1 mmHg PV Peak Velocity 96.1 cm/s PV Peak Gradient 3.7 mmHg RVOT Peak Velocity 59.1 cm/s FINDINGS Left Ventricle Normal left ventricular size, wall thickness, systolic function with no obvious regional wall motion abnormalities. There is grade I diastolic dysfunction of the left ventricle (impaired relaxation pattern). The left ventricular ejection fraction is normal, estimated at 55-60%. Right Ventricle The right ventricle is normal in size and systolic function. The estimated right ventricular systolic pressure, 25 mmHg. Left Atrium The left atrium is normal by two-dimensional, color flow and Doppler imaging with no structural abnormalities, no thrombus formation present. Right Atrium The right atrium is normal by two-dimensional imaging, color flow and Doppler imaging with no structural abnormalities, no thrombus formation present. Atrial Septum The interatrial septum appears normal with no evidence of a shunt. Aorta The aorta is normal by two-dimensional, color flow and Doppler interrogation. Mitral Valve Mild mitral annular calcification. Mild mitral regurgitation. Aortic Valve Structurally normal aortic valve. Trace to mild aortic valve regurgitation. Tricuspid Valve There is mild tricuspid valve regurgitation. Pulmonic Valve Trivial pulmonic valve regurgitation. Vessels The pulmonary artery appears normal. The inferior vena cava pulmonary and hepatic veins appear normal. Pericardium The pericardium is normal by two-dimensional imaging. There is no significant pericardial effusion. CONCLUSIONS Indication: Malignant neoplasm Normal LV size and function. Estimated EF 55 to 60%. Mild LVH stage I diastolic dysfunction. Normal RV size and function. Estimated RVSP normal at 25 mmHg. Mild MAC with trace MR and mild TR. Chandan Riley (Electronically Signed) Final Date: 21 August 2024 05:11
== END | disposition home or self-care (01) ==
PROVIDERS: PCP Physician Assistant; Referring Provider Internal Medicine Hematology & Oncology; Visit Provider Internal Medicine Hematology & Oncology
DX: I08.1 Rheumatic disorders of both mitral and tricuspid valves (principal); C50.919 Malignant neoplasm of unspecified site of unspecified female breast; C50.112 Malignant neoplasm of central portion of left female breast
CPT/HCPCS: 93306

== ENCOUNTER → 2024-08-25 | Outpatient (CLI) | payer MEDICARE, MEDICAID, SELFPAY ==
[2024-08-25 09:38] LABS: Basophils % (Auto) 1 % (0-2.5); Eosinophils # (Auto) 0.2 Thou/mm3 (0.0-0.5); Eosinophils % (Auto) 4 % (0-10); Hematocrit 37.9 % (36.0-46.0); Hemoglobin 12.5 g/dL (12.0-16.0); Immature Granulocytes % (Auto) 0 % (0-0); Immature Granulocytes Auto 0.02 Thou/mm3 (0.00-0.00); Lymphocytes # (Auto) 2.3 Thou/mm3 (1.0-4.8); Lymphocytes % (Auto) 43 % (10-50); Mean Corpuscular Hemoglobin 28.7 pg (25.0-35.0); Mean Corpuscular Volume 87 fL (80-100); Monocytes # (Auto) 0.4 Thou/mm3 (0.0-0.8); Monocytes % (Auto) 8 % (0-12); Neutrophils # (Auto) 2.4 Thou/mm3 (1.8-7.7); Neutrophils % (Auto) 44 % (37-80); Nucleated Red Blood Cell % 0 /100 WBC (0); Platelet Count 255 Thou/mm3 (140-440); RDW Standard Deviation 45.2 fL (36.4-46.3); Red Blood Count 4.35 Miln/mm3 (4.00-5.20); White Blood Count 5.4 Thou/mm3 (3.6-11.0)
[2024-08-25 09:54] LABS: Alanine Aminotransferase 11 U/L (10-49); Albumin, Serum 4.2 gm/dL (3.4-4.8); Albumin/Globulin Ratio 1.8 (1.2-2.2); Alkaline Phosphatase 82 U/L (46-116); Anion Gap 7 (7-16); Aspartate Amino Transferase 18 U/L (0-34); BUN/Creatinine Ratio 13 Ratio (12-20); Bilirubin,Total 0.4 mg/dL (0.3-1.2); Blood Urea Nitrogen 9 mg/dL (9-23); Calcium 9.7 mg/dL (8.3-10.6); Calcium (Corrected) 9.7 mg/dL (8.5-10.1); Carbon Dioxide 27.9 mMol/L (20.0-31.0); Chloride 108 mMol/L (98-107); Creatinine (Component) 0.7 mg/dL (0.6-1.3); Globulin 2.4 gm/dL (2.3-3.5); Glucose 95 mg/dL (74-106); Osmolality,Calculated 283 (275-295); Potassium 4.4 mMol/L (3.4-5.1); Sodium 143 mMol/L (136-145); Thyroid Stimulating Hormone 6.29 uIU/mL (0.55-4.78); Total Protein 6.6 gm/dL (5.7-8.2); eGFR > 60 See Note
[2024-08-25 16:11] LABS: Free T4 (Free Thyroxine) 0.77 ng/dL (0.89-1.76)
[2024-09-03 06:48] LABS: Cortisol,total,LC/MS/MS* 7.2 mcg/dL; T3,Total* 85 ng/dL (76-181)
== END | disposition home or self-care (01) ==
LOC: SCTO 08:31
PROVIDERS: PCP Physician Assistant; Referring Provider Internal Medicine Hematology & Oncology; Visit Provider Internal Medicine Hematology & Oncology
DX: C50.112 Malignant neoplasm of central portion of left female breast (principal); E03.2 Hypothyroidism due to medicaments and other exogenous substances
CPT/HCPCS: 36415; 80053; 82533; 84439; 84443; 84480; 85025

== ENCOUNTER → 2024-09-15 | Outpatient (CLI) | payer OTHER, SELFPAY ==
[2024-09-15 11:36] LABS: Basophils % (Auto) 0 % (0-2.5); Eosinophils # (Auto) 0.2 Thou/mm3 (0.0-0.5); Eosinophils % (Auto) 3 % (0-10); Hematocrit 37.3 % (36.0-46.0); Hemoglobin 12.5 g/dL (12.0-16.0); Immature Granulocytes % (Auto) 0 % (0-0); Immature Granulocytes Auto 0.01 Thou/mm3 (0.00-0.00); Lymphocytes # (Auto) 1.6 Thou/mm3 (1.0-4.8); Lymphocytes % (Auto) 28 % (10-50); Mean Corpuscular HGB Conc 33.5 g/dl (31.0-37.0); Mean Corpuscular Hemoglobin 28.9 pg (25.0-35.0); Mean Corpuscular Volume 86 fL (80-100); Monocytes # (Auto) 0.5 Thou/mm3 (0.0-0.8); Monocytes % (Auto) 9 % (0-12); Neutrophils # (Auto) 3.4 Thou/mm3 (1.8-7.7); Neutrophils % (Auto) 59 % (37-80); Nucleated Red Blood Cell % 0 /100 WBC (0); Platelet Count 234 Thou/mm3 (140-440); RDW Standard Deviation 42.5 fL (36.4-46.3); Red Blood Count 4.33 Miln/mm3 (4.00-5.20); White Blood Count 5.6 Thou/mm3 (3.6-11.0)
[2024-09-15 11:58] LABS: Alanine Aminotransferase 16 U/L (10-49); Albumin, Serum 4.2 gm/dL (3.4-4.8); Albumin/Globulin Ratio 1.6 (1.2-2.2); Alkaline Phosphatase 81 U/L (46-116); Anion Gap 10 (7-16); Aspartate Amino Transferase 17 U/L (0-34); BUN/Creatinine Ratio 19 Ratio (12-20); Bilirubin,Total 0.4 mg/dL (0.3-1.2); Blood Urea Nitrogen 13 mg/dL (9-23); Calcium 10.1 mg/dL (8.3-10.6); Calcium (Corrected) 10.1 mg/dL (8.5-10.1); Chloride 105 mMol/L (98-107); Creatinine (Component) 0.7 mg/dL (0.6-1.3); Globulin 2.6 gm/dL (2.3-3.5); Glucose 115 mg/dL (74-106); Osmolality,Calculated 284 (275-295); Potassium 4.2 mMol/L (3.4-5.1); Sodium 142 mMol/L (136-145); Total Protein 6.8 gm/dL (5.7-8.2); eGFR > 60 See Note
[2024-09-15 16:26] LABS: T4 (Thyroxine) 9.8 mcg/dL (4.5-10.9)
[2024-09-21 06:58] LABS: T3,Total* 129 ng/dL (76-181)
== END | disposition home or self-care (01) ==
PROVIDERS: PCP Physician Assistant; Referring Provider Internal Medicine Hematology & Oncology; Visit Provider Internal Medicine Hematology & Oncology
DX: C50.112 Malignant neoplasm of central portion of left female breast (principal); E03.2 Hypothyroidism due to medicaments and other exogenous substances
CPT/HCPCS: 36415; 80053; 84436; 84443; 84480; 85025

== ENCOUNTER 2024-09-21 10:39 | Outpatient (RCR) | payer MEDICARE, MEDICAID, SELFPAY ==
--- NOTE | 2024-08-30 21:43 | CTCFLWUP_ITS ---
Patient: MARYA GOLDEN : 1955 Page 5 of 6 FOLLOW UP NOTE DATE OF SERVICE: 08/24/2024 NAME: MARYA GOLDEN ACCOUNT: [id number] : 1955 AGE: 69 INTERVAL HISTORY: Patient here for follow up . patient is on keytruda .tolerating well. Patient requesting to remove port catheter . catheter is blocked. 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 S/p ultrasound-guided biopsy (11/21/2023). Ms. Golden is started on neoadjuvant chemotherapy with pembrolizumab, Taxol and carboplatin on 12/31/2023 Hypothyroidism Hypertension Hypercholesterolemia Osteoporosis (DEXA scan 12/09/2023) DATE OF DIAGNOSIS: 11/21/2023 STAGE/TNM: Stage IIIa, triple negative, poorly differentiated infiltrating ductal carcinoma of the left breast with left axillary adenopathy. TREATMENT HISTORY: Care?Plan Start?Date Cycle Day Intent TNBC?Pembro?17?cy?TaxCar?4?cy?AC?4?cy?Keynote?522 12/31/2023 1 21 Induction-Primary Reclast 12/25/2023 1 365 Palliative HISTORY OF PRESENT ILLNESS: Marya Golden is a 69-year-old SPA speaking female with history of hypothyroidism, hypertension has the following oncology history. patient is here for follow-up. She completed 4 cycles of Taxol and carboplatin chemotherapy along with pembrolizumab. She has tolerated treatment well. She says she does not feel any pain in her breast anymore 06/11/2022: Ms. Golden had bilateral screening mammograms done 10/17/2022: Left breast diagnostic mammogram and ultrasound Ms. Golden was aware that she needs to have the biopsy done. Unfortunately she decided not to have it. The reason she states is that she is scared. 10/15/2023: Bilateral breast ultrasound? 11/21/2023: Ultrasound-guided percutaneous biopsy of the left breast nodule 12/05/2023: PET/CT scan? 12/06/2023: Left axillary ultrasound 12/09/2023: Bone density test 12/18/2023: Echocardiogram showed LVEF of 60-65%. 12/31/2023: Ms. Golden is started on neoadjuvant pembrolizumab, Taxol and carboplatin chemotherapy. 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 Tobacco?Use:?Denies ETOH?Use:?Denies Drug?Note:?Denies Social?History?Note:?Lives?with?husabdn STATISTICAL MODELER HISTORY: Menarche?-?Age:?17 Menopause:?age?50-50 :?8 Live?Births:?7 Age?1st?:?18 Gynecological?Note:?1?miscarraige MEDICATIONS: 1. Citracal + D Slow Release - 600 mg-12.5 mcg (500 unit) 1 tab one tab po twice a day 2. Compazine - 10 mg 1 tab Daily 3. levothyroxine - 50 mcg 0.5 tab Daily 4. levothyroxine - 50 mcg 1 tab Daily 5. levothyroxine - 75 mcg 1 tab Daily 6. losartan - 50 mg 1 tab Daily 7. losartan - 100 mg 1 tab Daily 8. ondansetron - 8 mg 1 tab 1 tablet every 8 hrs as needed 9. Senna Plus - 8.6-50 mg 1 tab Daily Medications Last Reconciled by Marya Valera MA on 08/24/2024 ALLERGIES: No Known Drug Allergies REVIEW OF SYSTEMS: A complete 14-point review of systems was performed and is negative except as noted in interval history. PHYSICAL EXAMINATION: VITAL SIGNS: Temperature?99, B/P?143/89, Oxygen?Saturation?96% Weight?144?lbs (Change?since?08/18/24:?2?lbs) PAIN: 0 - No pain ECOG Performance Status: 0 - Asymptomatic and fully active GENERAL APPEARANCE: Appears well, in no apparent distress, appropriately interactive. HEENT: Normocephalic, no temporal wasting, normal conjunctiva, no scleral icterus, normal hearing, lips without lesions, neck normal range of motion. CARDIOVASCULAR: Not assessed. PULMONARY: Normal respiratory effort, no respiratory distress or use of accessory muscles, speaking in full sentences, no tachypnea. EXTREMITIES: No pedal edema or cyanosis. SKIN: Normal skin appearance. NEUROLOGIC: Alert and oriented x4. PSHYCHIATRIC: Appropriate affect, mood normal, behavior normal, intact thought and speech. LABORATORY DATA: I have personally reviewed and interpreted each of the patient?s relevant lab tests, abnormal findings are below: Date 08/25/24 ??GLUCOSE,RANDOM?(mg/dL) 95 ??BLOOD?UREA?NITROGEN?(mg/dL) 9 ??CREATININE?(mg/dL) 0.70 ??SODIUM?(mmol/L) 143 ??POTASSIUM?(mmol/L) 4.4 ??CHLORIDE?(mmol/L) 108?H ??CrCl?(CandG)?(ml/min) 79.31 ??AST/SGOT?(Unit/L) 18 ??ALT/SGPT?(Unit/L) 11 ??ALKALINE?PHOSPHATASE?(Unit/L) 82 ??BILIRUBIN,?TOTAL?(mg/dL) 0.4 ??PROTEIN?TOTAL?(gm/dl) 6.6 ??ALBUMIN,?SERUM?(gm/dl) 4.2 ??GLOBULIN?(gm/dl) 2.4 ??ALBUMIN/GLOBULIN?RATIO 1.8 ??CALCIUM,?SERUM?(mg/dL) 9.7 ??CALCIUM?SERUM?(CORRECTED)?(mg/dL) 9.7 ASSESSMENT/PLAN: #1 stage II aT3 N1 M0 triple negative poorly differentiated infiltrating ductal carcinoma of left breast with axillary lymphadenopathy S/p ultrasound-guided guided biopsy in November 21, 2023 at least 7 cm mobile mass in the left breast no adenopathy in the axilla On neoadjuvant chemotherapy with keynote trial. Patient is doing well with no palpable mass Patient will continue adjuvant Keytruda for 1 year Referrel to remove port Referral to surgeon for procedure Patient want to get reconstruction #2 hypothyroidism iatrogenic Continue Levoxyl #3 hypertension hypercholesterolemia to be followed by PCP ORDERS: Cbc,cmp,tsh,t4 RETURN TO CLINIC: 1 year BILLING AND COMPLIANCE: I reviewed external records from providers outside my specialty as summarized above. I spent a total of 50 minutes on this patient?s care on the day of their visit excluding time spent related to any billed procedures. This time includes time spent with the patient as well as time spent documenting in the medical record, reviewing patients records and tests, obtaining history, placing orders, communicating with other healthcare professionals, counseling the patient, family or caregiver, and/or care coordination for the diagnoses above. Electronically Signed by: Neri Frank MD T: 9:41 PM CC: Yudy?GUERDA Locke PCP: Yudy Locke Referring: Yudy Locke This document was completed utilizing speech recognition software. Grammatical errors, random word insertions, pronoun errors, and incomplete sentences are an occasional consequence of this system due to software limitations, ambient noise, and hardware issues. Any formal questions or concerns about the content, text or information contained within the body of this dictation should be directly addressed to the provider for clarification.
== END 2024-09-21 23:59 | disposition home or self-care (01) ==
LOC: SCTC 10:39
PROVIDERS: PCP Physician Assistant; Referring Provider Physician Assistant; Visit Provider Internal Medicine Hematology & Oncology
DX: Z51.0 Encounter for antineoplastic radiation therapy (principal); Z51.11 Encounter for antineoplastic chemotherapy; C50.412 Malignant neoplasm of upper-outer quadrant of left female breast; Z17.421 Hormone receptor negative with human epidermal growth factor receptor 2 negative status; R59.0 Localized enlarged lymph nodes; E03.2 Hypothyroidism due to medicaments and other exogenous substances; I10 Essential (primary) hypertension; E78.00 Pure hypercholesterolemia, unspecified
CPT/HCPCS: 77280; 77290; 77295; 77300; 77332; 77334; 77336; 77412; 77417; 96413; 99212; 99424; 99425; J7050; J9271; G0463

== ENCOUNTER → 2024-10-06 | Outpatient (CLI) | payer MEDICARE, MEDICAID, SELFPAY ==
[2024-10-06 13:11] LABS: Basophils % (Auto) 1 % (0-2.5); Eosinophils # (Auto) 0.2 Thou/mm3 (0.0-0.5); Eosinophils % (Auto) 4 % (0-10); Hematocrit 39.9 % (36.0-46.0); Hemoglobin 12.8 g/dL (12.0-16.0); Immature Granulocytes % (Auto) 0 % (0-0); Immature Granulocytes Auto 0.02 Thou/mm3 (0.00-0.00); Lymphocytes # (Auto) 1.3 Thou/mm3 (1.0-4.8); Lymphocytes % (Auto) 26 % (10-50); Mean Corpuscular HGB Conc 32.1 g/dl (31.0-37.0); Mean Corpuscular Hemoglobin 28.6 pg (25.0-35.0); Mean Corpuscular Volume 89 fL (80-100); Monocytes # (Auto) 0.6 Thou/mm3 (0.0-0.8); Monocytes % (Auto) 12 % (0-12); Neutrophils # (Auto) 2.8 Thou/mm3 (1.8-7.7); Neutrophils % (Auto) 58 % (37-80); Nucleated Red Blood Cell % 0 /100 WBC (0); Platelet Count 245 Thou/mm3 (140-440); RDW Standard Deviation 43.7 fL (36.4-46.3); Red Blood Count 4.48 Miln/mm3 (4.00-5.20); White Blood Count 4.9 Thou/mm3 (3.6-11.0)
[2024-10-06 13:21] LABS: Alanine Aminotransferase 15 U/L (10-49); Albumin, Serum 4.3 gm/dL (3.4-4.8); Albumin/Globulin Ratio 1.6 (1.2-2.2); Alkaline Phosphatase 76 U/L (46-116); Anion Gap 9 (7-16); Aspartate Amino Transferase 18 U/L (0-34); BUN/Creatinine Ratio 20 Ratio (12-20); Bilirubin,Total 0.3 mg/dL (0.3-1.2); Blood Urea Nitrogen 12 mg/dL (9-23); Calcium 9.6 mg/dL (8.3-10.6); Calcium (Corrected) 9.6 mg/dL (8.5-10.1); Carbon Dioxide 28.2 mMol/L (20.0-31.0); Chloride 106 mMol/L (98-107); Creatinine (Component) 0.6 mg/dL (0.6-1.3); Globulin 2.7 gm/dL (2.3-3.5); Glucose 109 mg/dL (74-106); Osmolality,Calculated 285 (275-295); Potassium 4.2 mMol/L (3.4-5.1); Sodium 143 mMol/L (136-145); Thyroid Stimulating Hormone 0.22 uIU/mL (0.55-4.78); eGFR > 60 See Note
[2024-10-06 13:25] LABS: T4 (Thyroxine) 10.6 mcg/dL (4.5-10.9)
== END | disposition home or self-care (01) ==
PROVIDERS: PCP Physician Assistant; Referring Provider Internal Medicine Hematology & Oncology; Visit Provider Internal Medicine Hematology & Oncology
DX: C50.112 Malignant neoplasm of central portion of left female breast (principal)
CPT/HCPCS: 36415; 80053; 84436; 84443; 85025

== ENCOUNTER 2024-10-07 09:17 | Outpatient (RCR) | payer MEDICARE, MEDICAID, SELFPAY | END 2024-10-21 23:59 | disposition home or self-care (01) | LOC: SCTC 09:17 | PROVIDERS: PCP Physician Assistant; Referring Provider Physician Assistant; Visit Provider Internal Medicine Hematology & Oncology | DX: Z51.0 Encounter for antineoplastic radiation therapy (principal); Z51.11 Encounter for antineoplastic chemotherapy; C50.412 Malignant neoplasm of upper-outer quadrant of left female breast; Z17.421 Hormone receptor negative with human epidermal growth factor receptor 2 negative status | CPT/HCPCS: 77412; 96413; 99212; J7050; J9271; G0463 ==

== ENCOUNTER → 2024-10-27 | Outpatient (CLI) | payer MEDICARE, MEDICAID, SELFPAY ==
[2024-10-27 12:19] LABS: Basophils % (Auto) 1 % (0-2.5); Eosinophils # (Auto) 0.2 Thou/mm3 (0.0-0.5); Eosinophils % (Auto) 4 % (0-10); Hematocrit 38.4 % (36.0-46.0); Hemoglobin 12.8 g/dL (12.0-16.0); Immature Granulocytes % (Auto) 0 % (0-0); Immature Granulocytes Auto 0.02 Thou/mm3 (0.00-0.00); Lymphocytes # (Auto) 1.7 Thou/mm3 (1.0-4.8); Lymphocytes % (Auto) 33 % (10-50); Mean Corpuscular HGB Conc 33.3 g/dl (31.0-37.0); Mean Corpuscular Hemoglobin 28.7 pg (25.0-35.0); Mean Corpuscular Volume 86 fL (80-100); Monocytes # (Auto) 0.5 Thou/mm3 (0.0-0.8); Monocytes % (Auto) 10 % (0-12); Neutrophils # (Auto) 2.7 Thou/mm3 (1.8-7.7); Neutrophils % (Auto) 53 % (37-80); Nucleated Red Blood Cell % 0 /100 WBC (0); Platelet Count 248 Thou/mm3 (140-440); RDW Standard Deviation 43.6 fL (36.4-46.3); Red Blood Count 4.46 Miln/mm3 (4.00-5.20); White Blood Count 5.2 Thou/mm3 (3.6-11.0)
[2024-10-27 12:34] LABS: Alanine Aminotransferase 19 U/L (10-49); Albumin, Serum 4.3 gm/dL (3.4-4.8); Albumin/Globulin Ratio 1.5 (1.2-2.2); Alkaline Phosphatase 81 U/L (46-116); Anion Gap 6 (7-16); Aspartate Amino Transferase 20 U/L (0-34); BUN/Creatinine Ratio 16 Ratio (12-20); Bilirubin,Total 0.3 mg/dL (0.3-1.2); Blood Urea Nitrogen 11 mg/dL (9-23); Calcium 9.3 mg/dL (8.3-10.6); Calcium (Corrected) 9.3 mg/dL (8.5-10.1); Carbon Dioxide 25.6 mMol/L (20.0-31.0); Chloride 107 mMol/L (98-107); Creatinine (Component) 0.7 mg/dL (0.6-1.3); Globulin 2.8 gm/dL (2.3-3.5); Glucose 110 mg/dL (74-106); Osmolality,Calculated 277 (275-295); Potassium 4.2 mMol/L (3.4-5.1); Sodium 139 mMol/L (136-145); Thyroid Stimulating Hormone 1.55 uIU/mL (0.55-4.78); Total Protein 7.1 gm/dL (5.7-8.2); eGFR > 60 See Note
== END | disposition home or self-care (01) ==
LOC: SCTO 11:19
PROVIDERS: PCP Physician Assistant; Referring Provider Internal Medicine Hematology & Oncology; Visit Provider Internal Medicine Hematology & Oncology
DX: C50.112 Malignant neoplasm of central portion of left female breast (principal)
CPT/HCPCS: 36415; 80053; 84436; 84443; 85025

== ENCOUNTER → 2024-11-17 | Outpatient (CLI) | payer MEDICARE, MEDICAID, SELFPAY ==
[2024-11-17 11:52] LABS: Basophils % (Auto) 1 % (0-2.5); Eosinophils # (Auto) 0.2 Thou/mm3 (0.0-0.5); Eosinophils % (Auto) 3 % (0-10); Hematocrit 38.7 % (36.0-46.0); Hemoglobin 12.9 g/dL (12.0-16.0); Immature Granulocytes % (Auto) 0 % (0-0); Immature Granulocytes Auto 0.02 Thou/mm3 (0.00-0.00); Lymphocytes # (Auto) 1.7 Thou/mm3 (1.0-4.8); Lymphocytes % (Auto) 34 % (10-50); Mean Corpuscular HGB Conc 33.3 g/dl (31.0-37.0); Mean Corpuscular Hemoglobin 29.2 pg (25.0-35.0); Mean Corpuscular Volume 88 fL (80-100); Monocytes # (Auto) 0.5 Thou/mm3 (0.0-0.8); Monocytes % (Auto) 10 % (0-12); Neutrophils # (Auto) 2.7 Thou/mm3 (1.8-7.7); Neutrophils % (Auto) 53 % (37-80); Nucleated Red Blood Cell % 0 /100 WBC (0); Platelet Count 248 Thou/mm3 (140-440); RDW Standard Deviation 46.2 fL (36.4-46.3); Red Blood Count 4.42 Miln/mm3 (4.00-5.20); White Blood Count 5.1 Thou/mm3 (3.6-11.0)
[2024-11-17 11:59] LABS: Alanine Aminotransferase 17 U/L (10-49); Albumin, Serum 4.2 gm/dL (3.4-4.8); Albumin/Globulin Ratio 1.7 (1.2-2.2); Alkaline Phosphatase 80 U/L (46-116); Anion Gap 9 (7-16); Aspartate Amino Transferase 20 U/L (0-34); BUN/Creatinine Ratio 18 Ratio (12-20); Bilirubin,Total 0.4 mg/dL (0.3-1.2); Blood Urea Nitrogen 11 mg/dL (9-23); Carbon Dioxide 26.3 mMol/L (20.0-31.0); Chloride 107 mMol/L (98-107); Creatinine (Component) 0.6 mg/dL (0.6-1.3); Free T4 (Free Thyroxine) 0.86 ng/dL (0.89-1.76); Globulin 2.5 gm/dL (2.3-3.5); Glucose 115 mg/dL (74-106); Osmolality,Calculated 283 (275-295); Potassium 4.2 mMol/L (3.4-5.1); Sodium 142 mMol/L (136-145); Thyroid Stimulating Hormone 2.97 uIU/mL (0.55-4.78); Total Protein 6.7 gm/dL (5.7-8.2); eGFR > 60 See Note
== END | disposition home or self-care (01) ==
LOC: SCTO 10:07
PROVIDERS: PCP Physician Assistant; Referring Provider Internal Medicine Hematology & Oncology; Visit Provider Internal Medicine Hematology & Oncology
DX: C50.112 Malignant neoplasm of central portion of left female breast (principal); E03.9 Hypothyroidism, unspecified
CPT/HCPCS: 36415; 80053; 84439; 84443; 85025

== ENCOUNTER 2024-11-18 13:24 | Outpatient (RCR) | payer MEDICARE, MEDICAID, SELFPAY ==
--- NOTE | 2024-11-12 14:17 | CTCFLWUP_ITS ---
Patient: MARYA GOLDEN : 1955 Page 2 of 2 FOLLOW UP NOTE DATE OF SERVICE: 11/09/2024 NAME: MARYA GOLDEN ACCOUNT: [id number] : 1955 AGE: 69 INTERVAL HISTORY: Subjective: Chief Complaint Follow-up visit for breast cancer treatment History of Present Illness Chantel Yao, a patient with a history of triple-negative breast cancer, presents for follow-up after completing chemotherapy, radiation, and surgery. The patient reports feeling muy nerissa (very good) since the last visit. The patient has completed her cancer treatment regimen, including chemotherapy, radiation, and surgery. The surgery specimen showed no evidence of cancer. She is currently receiving immunotherapy, which is expected to continue for one year, with an anticipated completion date of December 09. The patient is also receiving yearly injections for her bones, which will continue for a total of 5 years. As a result of the immunotherapy, the patient has developed thyroid issues and is currently taking thyroid medication. This thyroid inflammation may be contributing to weight gain, which is also a common side effect in breast cancer patients due to hormone imbalances. The patient has been advised to be mindful of her diet. The patient has been diagnosed with generalized anxiety, though no specific symptoms or impact on daily functioning were discussed. She continues to adhere to her prescribed treatments, including the thyroid medication. Medications and Supplements - Immunotherapy - For one year - Treatment should be done by December 09 - Yearly injection for bones - To continue for 5 years - Thyroid medication - Due to immunotherapy - Can cause weight gain Review of Systems General: Positive for weight gain. Psychiatric: Positive for generalized anxiety. 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 S/p ultrasound-guided biopsy (11/21/2023). Ms. Golden is started on neoadjuvant chemotherapy with pembrolizumab, Taxol and carboplatin on 12/31/2023 Hypothyroidism Hypertension Hypercholesterolemia Osteoporosis (DEXA scan 12/09/2023) DATE OF DIAGNOSIS: 11/21/2023 STAGE/TNM: Stage IIIa, triple negative, poorly differentiated infiltrating ductal carcinoma of the left breast with left axillary adenopathy. TREATMENT HISTORY: Care?Plan Start?Date Cycle Day Intent TNBC?Pembro?17?cy?TaxCar?4?cy?AC?4?cy?Keynote?522 12/31/2023 1 21 Induction-Primary Reclast 12/25/2023 1 365 Palliative HISTORY OF PRESENT ILLNESS: Marya Golden is a 69-year-old SPA speaking female with history of hypothyroidism, hypertension has the following oncology history. patient is here for follow-up. She completed 4 cycles of Taxol and carboplatin chemotherapy along with pembrolizumab. She has tolerated treatment well. She says she does not feel any pain in her breast anymore 06/11/2022: Ms. Golden had bilateral screening mammograms done 10/17/2022: Left breast diagnostic mammogram and ultrasound Ms. Golden was aware that she needs to have the biopsy done. Unfortunately she decided not to have it. The reason she states is that she is scared. 10/15/2023: Bilateral breast ultrasound? 11/21/2023: Ultrasound-guided percutaneous biopsy of the left breast nodule 12/05/2023: PET/CT scan? 12/06/2023: Left axillary ultrasound 12/09/2023: Bone density test 12/18/2023: Echocardiogram showed LVEF of 60-65%. 12/31/2023: Ms. Golden is started on neoadjuvant pembrolizumab, Taxol and carboplatin chemotherapy. 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 Tobacco?Use:?Denies ETOH?Use:?Denies Drug?Note:?Denies Social?History?Note:?Lives?with?husabdn CATERING DIRECTOR HISTORY: Menarche?-?Age:?17 Menopause:?age?50-50 :?8 Live?Births:?7 Age?1st?:?18 Gynecological?Note:?1?miscarraige MEDICATIONS: 1. Citracal + D Slow Release - 600 mg-12.5 mcg (500 unit) 1 tab one tab po twice a day 2. Compazine - 10 mg 1 tab Daily 3. levothyroxine - 75 mcg 1 tab Daily 4. levothyroxine - 50 mcg 1 tab Daily 5. losartan - 100 mg 1 tab Daily 6. losartan - 50 mg 1 tab Daily 7. ondansetron - 8 mg 1 tab 1 tablet every 8 hrs as needed 8. Senna Plus - 8.6-50 mg 1 tab Daily Medications Last Reconciled by Dixie Liao MA on 11/09/2024 ALLERGIES: No Known Drug Allergies REVIEW OF SYSTEMS: A complete 14-point review of systems was performed and is negative except as noted in interval history. PHYSICAL EXAMINATION: VITAL SIGNS: PAIN: 0 - No pain ECOG Performance Status: 1 - Symptomatic; ambulatory; restricted in strenuous activity GENERAL APPEARANCE: Appears well, in no apparent distress, appropriately interactive. HEENT: Normocephalic, no temporal wasting, normal conjunctiva, no scleral icterus, normal hearing, lips without lesions, neck normal range of motion. CARDIOVASCULAR: Not assessed. PULMONARY: Normal respiratory effort, no respiratory distress or use of accessory muscles, speaking in full sentences, no tachypnea. EXTREMITIES: No pedal edema or cyanosis. SKIN: Normal skin appearance. NEUROLOGIC: Alert and oriented x4. PSHYCHIATRIC: Appropriate affect, mood normal, behavior normal, intact thought and speech. LABORATORY DATA: I have personally reviewed and interpreted each of the patient?s relevant lab tests, abnormal findings are below: Date 10/06/24 10/27/24 ??WHITE?BLOOD?COUNT?(Thou/mm3) 4.9 5.2 ??RED?BLOOD?COUNT?(Miln/mm3) 4.48 4.46 ??HEMOGLOBIN?(gm/dl) 12.8 12.8 ??HEMATOCRIT?(%) 39.9 38.4 ??PLATELET?COUNT?(Thou/mm3) 245 248 ??NEUTROPHILS?%,?AUTO?(%) 58 53 ??LYMPH?%,?AUTO?(%) 26 33 ??NEUTROPHILS,?AUTO?(Thou/mm3) 2.8 2.7 ??GLUCOSE,RANDOM?(mg/dL) 109?H 110?H ??BLOOD?UREA?NITROGEN?(mg/dL) 12 11 ??CREATININE?(mg/dL) 0.60 0.70 ??SODIUM?(mmol/L) 143 139 ??POTASSIUM?(mmol/L) 4.2 4.2 ??CHLORIDE?(mmol/L) 106 107 ??CrCl?(CandG)?(ml/min) 80.62 68.97 ??AST/SGOT?(Unit/L) 18 20 ??ALT/SGPT?(Unit/L) 15 19 ??ALKALINE?PHOSPHATASE?(Unit/L) 76 81 ??BILIRUBIN,?TOTAL?(mg/dL) 0.3 0.3 ??PROTEIN?TOTAL?(gm/dl) 7.0 7.1 ??ALBUMIN,?SERUM?(gm/dl) 4.3 4.3 ??GLOBULIN?(gm/dl) 2.7 2.8 ??ALBUMIN/GLOBULIN?RATIO 1.6 1.5 ??CALCIUM,?SERUM?(mg/dL) 9.6 9.3 ??CALCIUM?SERUM?(CORRECTED)?(mg/dL) 9.6 9.3 ASSESSMENT/PLAN: #1 stage II aT3 N1 M0 triple negative poorly differentiated infiltrating ductal carcinoma of left breast with axillary lymphadenopathy S/p ultrasound-guided guided biopsy in November 21, 2023 at least 7 cm mobile mass in the left breast no adenopathy in the axilla On neoadjuvant chemotherapy with keynote trial. Patient is doing well with no palpable mass Patient will continue adjuvant Keytruda for 1 year Assessment and Plan: Chantel Yao, female patient with history of triple negative breast cancer, status post chemotherapy, radiation, and surgery, currently on immunotherapy and thyroid medication. Breast Cancer (Triple Negative) Assessment: Patient has completed chemotherapy and radiation therapy for triple negative breast cancer. Surgical specimen showed no residual cancer. Currently on immunotherapy regimen scheduled to complete by December 09, 2024. Treatment plan includes yearly injection for bone health for 5 years. Prognosis is favorable, with 85% of patients being cancer-free at 5 years with this treatment protocol. Plan: - Continue immunotherapy until December 09, 2024 - Administer yearly injection for bone health, continue for 5 years - Initiate Natira testing (blood test for cancer cells) every 3 months - First test to be performed in clinic, subsequent tests at patient's home or in clinic per patient preference - Follow-up appointment in 2 months Thyroid Dysfunction Assessment: Patient is on thyroid medication due to immunotherapy-induced thyroid inflammation. This condition may be contributing to weight gain. Prognosis for thyroid function recovery is uncertain; patient may require lifelong thyroid medication. Plan: - Continue current thyroid medication - Monitor thyroid function with lab tests prior to immunotherapy administration - Consider endocrinology referral if needed Generalized Anxiety Disorder Assessment: Patient has been diagnosed with generalized anxiety disorder. No specific symptoms or severity discussed in this encounter. Plan: - Continue current management (specific interventions not discussed) Preventive Care Assessment: Patient requires ongoing cancer screening and preventive care. Plan: - Continue screening for colon cancer (frequency not specified) - Continue Pap smear screening (frequency not specified) Weight Management Assessment: Patient counseled on potential weight gain related to breast cancer treatment and hormone imbalance. Thyroid dysfunction may also be contributing to weight gain. Plan: - Educate patient on mindful eating habits #2 hypothyroidism iatrogenic Continue Levoxyl #3 hypertension hypercholesterolemia to be followed by PCP ORDERS: Order # Description [id number] CBC + Comprehensive Metabolic Panel [id number] Lab Appointment [id number] CBC + Comprehensive Metabolic Panel [id number] Lab Appointment [id number] CBC + Comprehensive Metabolic Panel [id number] Lab Appointment [id number] CBC + Comprehensive Metabolic Panel [id number] Lab Appointment [id number] CBC + Comprehensive Metabolic Panel [id number] Lab Appointment [id number] CBC + Comprehensive Metabolic Panel [id number] Lab Appointment [id number] CBC + Comprehensive Metabolic Panel [id number] Lab Appointment RETURN TO CLINIC: BILLING AND COMPLIANCE: I reviewed external records from providers outside my specialty as summarized above. I spent a total of 50 minutes on this patient?s care on the day of their visit excluding time spent related to any billed procedures. This time includes time spent with the patient as well as time spent documenting in the medical record, reviewing patients records and tests, obtaining history, placing orders, communicating with other healthcare professionals, counseling the patient, family or caregiver, and/or care coordination for the diagnoses above. Electronically Signed by: Neri Frank MD T: 1:19 PM CC: Yudy?GUERDA Locke PCP: Yudy Locke Referring: Yudy Locke This document was completed utilizing speech recognition software. Grammatical errors, random word insertions, pronoun errors, and incomplete sentences are an occasional consequence of this system due to software limitations, ambient noise, and hardware issues. Any formal questions or concerns about the content, text or information contained within the body of this dictation should be directly addressed to the provider for clarification.
== END 2024-11-21 23:59 | disposition home or self-care (01) ==
LOC: SCTC 13:24
PROVIDERS: PCP Physician Assistant; Referring Provider Physician Assistant; Visit Provider Internal Medicine Hematology & Oncology
DX: Z51.11 Encounter for antineoplastic chemotherapy (principal); C50.412 Malignant neoplasm of upper-outer quadrant of left female breast; Z17.421 Hormone receptor negative with human epidermal growth factor receptor 2 negative status; F41.1 Generalized anxiety disorder; R63.5 Abnormal weight gain; Z68.27 Body mass index [BMI] 27.0-27.9, adult; I10 Essential (primary) hypertension; E78.00 Pure hypercholesterolemia, unspecified; E03.9 Hypothyroidism, unspecified; Z79.890 Hormone replacement therapy
CPT/HCPCS: 96413; 99213; J7050; J9271; G0463

== ENCOUNTER → 2024-12-08 | Outpatient (CLI) | payer MEDICARE, MEDICAID, SELFPAY ==
[2024-12-08 10:59] LABS: Basophils % (Auto) 1 % (0-2.5); Eosinophils # (Auto) 0.2 Thou/mm3 (0.0-0.5); Eosinophils % (Auto) 3 % (0-10); Hematocrit 39.6 % (36.0-46.0); Hemoglobin 13.1 g/dL (12.0-16.0); Immature Granulocytes % (Auto) 0 % (0-0); Immature Granulocytes Auto 0.02 Thou/mm3 (0.00-0.00); Lymphocytes % (Auto) 32 % (10-50); Mean Corpuscular HGB Conc 33.1 g/dl (31.0-37.0); Mean Corpuscular Hemoglobin 29.1 pg (25.0-35.0); Mean Corpuscular Volume 88 fL (80-100); Monocytes # (Auto) 0.7 Thou/mm3 (0.0-0.8); Monocytes % (Auto) 11 % (0-12); Neutrophils # (Auto) 3.4 Thou/mm3 (1.8-7.7); Neutrophils % (Auto) 54 % (37-80); Nucleated Red Blood Cell % 0 /100 WBC (0); Platelet Count 242 Thou/mm3 (140-440); RDW Standard Deviation 46.7 fL (36.4-46.3); White Blood Count 6.3 Thou/mm3 (3.6-11.0)
[2024-12-08 11:28] LABS: Alanine Aminotransferase 20 U/L (10-49); Albumin, Serum 4.2 gm/dL (3.4-4.8); Albumin/Globulin Ratio 1.7 (1.2-2.2); Alkaline Phosphatase 80 U/L (46-116); Anion Gap 9 (7-16); Aspartate Amino Transferase 17 U/L (0-34); BUN/Creatinine Ratio 13 Ratio (12-20); Bilirubin,Total 0.4 mg/dL (0.3-1.2); Blood Urea Nitrogen 10 mg/dL (9-23); Calcium 9.3 mg/dL (8.3-10.6); Calcium (Corrected) 9.3 mg/dL (8.5-10.1); Carbon Dioxide 29.2 mMol/L (20.0-31.0); Chloride 104 mMol/L (98-107); Creatinine (Component) 0.8 mg/dL (0.6-1.3); Globulin 2.5 gm/dL (2.3-3.5); Glucose 112 mg/dL (74-106); Osmolality,Calculated 283 (275-295); Potassium 4.4 mMol/L (3.4-5.1); Sodium 142 mMol/L (136-145); Thyroid Stimulating Hormone 5.29 uIU/mL (0.55-4.78); Total Protein 6.7 gm/dL (5.7-8.2); eGFR > 60 See Note
[2024-12-11 06:09] LABS: T3,Total* 77 ng/dL (76-181)
== END | disposition home or self-care (01) ==
PROVIDERS: PCP Physician Assistant; Referring Provider Internal Medicine Hematology & Oncology; Visit Provider Internal Medicine Hematology & Oncology
DX: C50.112 Malignant neoplasm of central portion of left female breast (principal); E03.9 Hypothyroidism, unspecified
CPT/HCPCS: 36415; 80053; 84443; 84480; 85025

== ENCOUNTER 2024-12-09 07:24 | Outpatient (RCR) | payer MEDICARE, MEDICAID, SELFPAY ==
[2024-12-09 11:17] LABS: Free T4 (Free Thyroxine) 0.89 ng/dL (0.89-1.76)
== END 2024-12-21 23:59 | disposition home or self-care (01) ==
LOC: SCTC 07:24
PROVIDERS: PCP Family Medicine; Referring Provider Family Medicine; Visit Provider Internal Medicine Hematology & Oncology
DX: Z51.11 Encounter for antineoplastic chemotherapy (principal); C50.412 Malignant neoplasm of upper-outer quadrant of left female breast; Z17.421 Hormone receptor negative with human epidermal growth factor receptor 2 negative status; F41.1 Generalized anxiety disorder; E03.9 Hypothyroidism, unspecified; I10 Essential (primary) hypertension; E78.00 Pure hypercholesterolemia, unspecified
CPT/HCPCS: 84439; 96413; J7050; J9271

== ENCOUNTER → 2025-01-17 | Outpatient (CLI) | payer MEDICARE, MEDICAID, SELFPAY ==
--- NOTE | 2025-01-17 12:30 | ECHO_ITS ---
Transthoracic Echo Report Ht (in): 60 Wt (lb): 152 Exam Location: Echo Lab Status: Preadmit Valve And Regulator Repairer: Pamella Wilder Indications: Procedure Performed: BP: / HR: Technical Quality: Technically difficult study MEASUREMENTS (Male / Female) Normal Values 2D ECHO LV Diastolic Diameter PLAX 3.6 cm 4.2 - 5.9 / 3.9 - 5.3 cm LV Systolic Diameter PLAX 2.4 cm IVS Diastolic Thickness 1.1 cm 0.6 - 1.0 / 0.6 - 0.9 cm LVPW Diastolic Thickness 1.2 cm 0.6 - 1.0 / 0.6 - 0.9 cm LV Relative Wall Thickness 0.6 LVOT Diameter 1.5 cm Aortic Root Diameter 2.7 cm LV Ejection Fraction MOD BP 54.4 % >= 55 % LV Ejection Fraction MOD 4C 65.9 % LV Ejection Fraction 4C AL 67.0 % LV Ejection Fraction MOD 2C 43.1 % LV Ejection Fraction 2C AL 42.6 % LA Volume Index 18.2 cm?/m? 16 - 28 cm?/m? M-MODE Aortic Root Diameter MM 2.6 cm LA Systolic Diameter MM 2.4 cm LA Ao Ratio MM 0.9 AV Cusp Separation MM 2.0 cm DOPPLER AV Peak Velocity 113.5 cm/s AV Peak Gradient 5.2 mmHg AV Mean Gradient 3.0 mmHg AV Velocity Time Integral 28.5 cm LVOT Peak Velocity 92.5 cm/s LVOT Peak Gradient 3.4 mmHg LVOT Velocity Time Integral 23.0 cm AV Area Cont Eq vti 1.4 cm? AV Area Cont Eq pk 1.4 cm? MV Area PHT 3.7 cm? Mitral E Point Velocity 59.7 cm/s Mitral A Point Velocity 87.8 cm/s Mitral E to A Ratio 0.7 LV E' Lateral Velocity 10.7 cm/s Mitral E to LV E' Lateral Ratio 5.6 LV E' Septal Velocity 8.5 cm/s Mitral E to LV E' Septal Ratio 7.0 TR Peak Velocity 190.0 cm/s TR Peak Gradient 14.4 mmHg PV Peak Velocity 97.7 cm/s PV Peak Gradient 3.8 mmHg FINDINGS Left Ventricle Normal left ventricular size and systolic function with no obvious regional wall motion abnormalities. Mild LVH. The ejection fraction is visually estimated at 55-60%. There is grade I diastolic dysfunction of the left ventricle (impaired relaxation pattern). Right Ventricle The right ventricle is normal in size and systolic function. Left Atrium The left atrium is normal by two-dimensional, color flow and Doppler imaging with no structural abnormalities, no thrombus formation present. Right Atrium The right atrium is normal by two-dimensional imaging, color flow and Doppler imaging with no structural abnormalities, no thrombus formation present. Atrial Septum The interatrial septum appears normal with no evidence of a shunt. Aorta The aorta is normal by two-dimensional, color flow and Doppler interrogation. Mitral Valve The mitral valve is normal by two-dimensional, color flow and Doppler interrogation. There is no significant mitral valve regurgitation, stenosis or prolapse. Aortic Valve The aortic valve is trileaflet and normal by two-dimensional, color flow and Doppler interrogation. There is no significant aortic valve regurgitation. Tricuspid Valve The tricuspid valve is normal by two-dimensional, color flow and Doppler interrogation. There is trace tricuspid valve regurgitation. Pulmonic Valve The pulmonic valve is not well visualized. There is no significant pulmonic valve regurgitation. Vessels The pulmonary artery appears normal. The inferior vena cava pulmonary and hepatic veins appear normal. Pericardium The pericardium is normal by two-dimensional imaging. There is no significant pericardial effusion. CONCLUSIONS Indication: malignant neoplasm of central portion of left female breast Normal LV size and function. Mild LVH. Estimated EF at 55-60%. There is grade I diastolic dysfunction. The RV is normal in size and systolic function. Trace TR Dorys Kahn (Electronically Signed) Final Date: 18 January 2025 09:05
== END | disposition home or self-care (01) ==
LOC: SDIM 01-21 07:25
PROVIDERS: Referring Provider Internal Medicine Hematology & Oncology; Visit Provider Internal Medicine Hematology & Oncology
DX: I07.1 Rheumatic tricuspid insufficiency (principal); I50.31 Acute diastolic (congestive) heart failure; C50.112 Malignant neoplasm of central portion of left female breast
CPT/HCPCS: 93306

== ENCOUNTER 2025-02-15 10:54 | Outpatient (RCR) | payer MEDICARE, MEDICAID, SELFPAY ==
--- NOTE | 2025-02-18 13:14 | CTCFLWUP_ITS ---
Patient: MARYA GOLDEN : 1955 Page 2 of 2 FOLLOW UP NOTE DATE OF SERVICE: 02/15/2025 NAME: MARYA GOLDEN ACCOUNT: [id number] : 1955 AGE: 69 INTERVAL HISTORY: Subjective: Chief Complaint Follow-up visit for breast cancer treatment History of Present Illness Chantel Yao, a patient with a history of triple-negative breast cancer, presents for follow-up after completing chemotherapy, radiation, and surgery. The patient reports feeling muy nerissa (very good) since the last visit. The patient has completed her cancer treatment regimen, including chemotherapy, radiation, and surgery. The surgery specimen showed no evidence of cancer. She is currently receiving immunotherapy, which is expected to continue for one year, with an anticipated completion date of December 09. The patient is also receiving yearly injections for her bones, which will continue for a total of 5 years. As a result of the immunotherapy, the patient has developed thyroid issues and is currently taking thyroid medication. This thyroid inflammation may be contributing to weight gain, which is also a common side effect in breast cancer patients due to hormone imbalances. The patient has been advised to be mindful of her diet. The patient has been diagnosed with generalized anxiety, though no specific symptoms or impact on daily functioning were discussed. She continues to adhere to her prescribed treatments, including the thyroid medication. Medications and Supplements - Immunotherapy - For one year - Treatment should be done by December 09 - Yearly injection for bones - To continue for 5 years - Thyroid medication - Due to immunotherapy - Can cause weight gain Review of Systems General: Positive for weight gain. Psychiatric: Positive for generalized anxiety. Objective: Laboratory, Imaging, and Diagnostic Test Results - Surgery specimen: No cancer detected - Natira test: Planned for every 3 months (first test to be done at the clinic) ONCOLOGY HISTORY:?[facility] Hx? DIAGNOSIS: Malignant neoplasm of central portion of left female breast [ICD10] C50.112 Stage IIIa, triple negative, poorly differentiated infiltrating ductal carcinoma of the left breast with left axillary adenopathy. S/p ultrasound-guided biopsy (11/21/2023). Ms. Golden is started on neoadjuvant chemotherapy with pembrolizumab, Taxol and carboplatin on 12/31/2023 Hypothyroidism Hypertension Hypercholesterolemia Osteoporosis (DEXA scan 12/09/2023) DATE OF DIAGNOSIS: 11/21/2023 STAGE/TNM: Stage IIIa, triple negative, poorly differentiated infiltrating ductal carcinoma of the left breast with left axillary adenopathy. TREATMENT HISTORY: Care?Plan Start?Date Cycle Day Intent TNBC?Pembro?17?cy?TaxCar?4?cy?AC?4?cy?Keynote?522 12/31/2023 1 21 Induction-Primary Reclast 12/25/2023 1 365 Palliative HISTORY OF PRESENT ILLNESS: Marya Golden is a 69-year-old SPA speaking female with history of hypothyroidism, hypertension has the following oncology history. patient is here for follow-up. She completed 4 cycles of Taxol and carboplatin chemotherapy along with pembrolizumab. She has tolerated treatment well. She says she does not feel any pain in her breast anymore 06/11/2022: Ms. Golden had bilateral screening mammograms done 10/17/2022: Left breast diagnostic mammogram and ultrasound Ms. Golden was aware that she needs to have the biopsy done. Unfortunately she decided not to have it. The reason she states is that she is scared. 10/15/2023: Bilateral breast ultrasound? 11/21/2023: Ultrasound-guided percutaneous biopsy of the left breast nodule 12/05/2023: PET/CT scan? 12/06/2023: Left axillary ultrasound 12/09/2023: Bone density test 12/18/2023: Echocardiogram showed LVEF of 60-65%. 12/31/2023: Ms. Golden is started on neoadjuvant pembrolizumab, Taxol and carboplatin chemotherapy. 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 Tobacco?Use:?Denies ETOH?Use:?Denies Drug?Note:?Denies Social?History?Note:?Lives?with?husabdn [employer] DISPATCHER HISTORY: Menarche?-?Age:?17 Menopause:?age?[age] :?8 Live?Births:?7 Age?1st?:?18 Gynecological?Note:?1?miscarraige MEDICATIONS: 1. Citracal + D Slow Release - 600 mg-12.5 mcg (500 unit) 1 tab one tab po twice a day 2. Compazine - 10 mg 1 tab Daily 3. levothyroxine - 50 mcg 1 tab Daily 4. levothyroxine - 75 mcg 1 tab Daily 5. losartan - 100 mg 1 tab Daily 6. losartan - 50 mg 1 tab Daily 7. ondansetron - 8 mg 1 tab 1 tablet every 8 hrs as needed 8. Senna Plus - 8.6-50 mg 1 tab Daily?Palabra Meds? Medications Last Reconciled by Marya Garcia MD on 02/15/2025 ALLERGIES: No Known Drug Allergies REVIEW OF SYSTEMS: A complete 14-point review of systems was performed and is negative except as noted in interval history. PHYSICAL EXAMINATION:?[facility] PE? VITAL SIGNS: Temperature?98.2, B/P?123/79, Oxygen?Saturation?96% PAIN: 0 - No pain ECOG Performance Status: 0 - Asymptomatic and fully active GENERAL APPEARANCE: Appears well, in no apparent distress, appropriately interactive. HEENT: Normocephalic, no temporal wasting, normal conjunctiva, no scleral icterus, normal hearing, lips without lesions, neck normal range of motion. CARDIOVASCULAR: Not assessed. PULMONARY: Normal respiratory effort, no respiratory distress or use of accessory muscles, speaking in full sentences, no tachypnea. EXTREMITIES: No pedal edema or cyanosis. SKIN: Normal skin appearance. NEUROLOGIC: Alert and oriented x4. PSHYCHIATRIC: Appropriate affect, mood normal, behavior normal, intact thought and speech. LABORATORY DATA: I have personally reviewed and interpreted each of the patient?s relevant lab tests, abnormal findings are below: Date 12/08/24 02/15/25 ??WHITE?BLOOD?COUNT?(Thou/mm3) 6.3 6.1 ??RED?BLOOD?COUNT?(Miln/mm3) 4.50 4.49 ??HEMOGLOBIN?(gm/dl) 13.1 13.3 ??HEMATOCRIT?(%) 39.6 39.7 ??PLATELET?COUNT?(Thou/mm3) 242 247 ??NEUTROPHILS?%,?AUTO?(%) 54 54 ??LYMPH?%,?AUTO?(%) 32 33 ??NEUTROPHILS,?AUTO?(Thou/mm3) 3.4 3.3 ??GLUCOSE,RANDOM?(mg/dL) 112?H 110?H ??BLOOD?UREA?NITROGEN?(mg/dL) 10 9 ??CREATININE?(mg/dL) 0.80 0.70 ??SODIUM?(mmol/L) 142 141 ??POTASSIUM?(mmol/L) 4.4 4.4 ??CHLORIDE?(mmol/L) 104 106 ??CrCl?(CandG)?(ml/min) 60.70 69.90 ??AST/SGOT?(Unit/L) 17 18 ??ALT/SGPT?(Unit/L) 20 15 ??ALKALINE?PHOSPHATASE?(Unit/L) 80 79 ??BILIRUBIN,?TOTAL?(mg/dL) 0.4 0.3 ??PROTEIN?TOTAL?(gm/dl) 6.7 6.9 ??ALBUMIN,?SERUM?(gm/dl) 4.2 4.0 ??GLOBULIN?(gm/dl) 2.5 2.9 ??ALBUMIN/GLOBULIN?RATIO 1.7 1.4 ??CALCIUM,?SERUM?(mg/dL) 9.3 9.6 ??CALCIUM?SERUM?(CORRECTED)?(mg/dL) 9.3 9.6 ASSESSMENT/PLAN:?Robert Frank Assessment/Plan? #1 stage II aT3 N1 M0 triple negative poorly differentiated infiltrating ductal carcinoma of left breast with axillary lymphadenopathy S/p ultrasound-guided guided biopsy in November 21, 2023 at least 7 cm mobile mass in the left breast no adenopathy in the axilla On neoadjuvant chemotherapy with keynote trial. Patient is doing well with no palpable mass Patient will continue adjuvant Keytruda for 1 year Assessment and Plan: Chantel Yao, female patient with history of triple negative breast cancer, status post chemotherapy, radiation, and surgery, currently on immunotherapy and thyroid medication. Breast Cancer (Triple Negative) Assessment: Patient has completed chemotherapy and radiation therapy for triple negative breast cancer. Surgical specimen showed no residual cancer. Currently on immunotherapy regimen scheduled to complete by December 09, 2024. Treatment plan includes yearly injection for bone health for 5 years. Prognosis is favorable, with 85% of patients being cancer-free at 5 years with this treatment protocol. Completed immunotherapy in November 2024 Echo is stable thyroid Dysfunction Assessment: Patient is on thyroid medication due to immunotherapy-induced thyroid inflammation. This condition may be contributing to weight gain. Prognosis for thyroid function recovery is uncertain; patient may require lifelong thyroid medication. Plan: - Continue current thyroid medication - Monitor thyroid function with lab tests prior to immunotherapy administration - Consider endocrinology referral if needed Generalized Anxiety Disorder Assessment: Patient has been diagnosed with generalized anxiety disorder. No specific symptoms or severity discussed in this encounter. Plan: - Continue current management and follow-up with primary care Preventive Care Assessment: Patient requires ongoing cancer screening and preventive care. Plan: - Continue screening for colon cancer (frequency not specified) - Continue Pap smear screening (frequency not specified) Weight Management Assessment: Patient counseled on potential weight gain related to breast cancer treatment and hormone imbalance. Thyroid dysfunction may also be contributing to weight gain. Plan: - Educate patient on mindful eating habits #2 hypothyroidism iatrogenic Continue Levoxyl #3 hypertension hypercholesterolemia to be followed by PCP ORDERS: Order # Description [id number] 3D Mammogram Screening + Bilateral [id number] Comprehensive Metabolic Panel - 12 + CBC with Auto Diff + MD Follow Up 3 Months + [id number] Thyroid Stimulating Hormone + Assay Triiodothyronine (T3) RETURN TO CLINIC: I reviewed the diagnosis, prognosis, and recommended treatment/procedure options with the patient (and/or their legal patient account representative), including the potential benefits, risks, side effects and alternative therapies. We also discussed the option of no treatment and the possibility of clinical trial participation, if applicable. All questions were addressed, and they demonstrated understanding. They provided informed consent to proceed with the proposed plan of care. BILLING AND COMPLIANCE: I reviewed external records from providers outside my specialty as summarized above. I spent a total of 50 minutes on this patient?s care on the day of their visit excluding time spent related to any billed procedures. This time includes time spent with the patient as well as time spent documenting in the medical record, reviewing patients records and tests, obtaining history, placing orders, communicating with other healthcare professionals, counseling the patient, family or caregiver, and/or care coordination for the diagnoses above. Electronically Signed by: Neri Frank MD T: 1:12 PM CC: Shruthi? PCP: Neri Frank Referring: Yudy Locke This document was completed utilizing speech recognition software. Grammatical errors, random word insertions, pronoun errors, and incomplete sentences are an occasional consequence of this system due to software limitations, ambient noise, and hardware issues. Any formal questions or concerns about the content, text or information contained within the body of this dictation should be directly addressed to the provider for clarification.
== END 2025-02-21 23:59 | disposition home or self-care (01) ==
LOC: SCTC 10:54
PROVIDERS: PCP Physician Assistant; Referring Provider Physician Assistant; Visit Provider Internal Medicine Hematology & Oncology
DX: C50.412 Malignant neoplasm of upper-outer quadrant of left female breast (principal); Z17.421 Hormone receptor negative with human epidermal growth factor receptor 2 negative status; Z92.21 Personal history of antineoplastic chemotherapy; Z92.3 Personal history of irradiation; F41.1 Generalized anxiety disorder; E03.9 Hypothyroidism, unspecified; I10 Essential (primary) hypertension; E78.00 Pure hypercholesterolemia, unspecified
CPT/HCPCS: 99213; G0463

== ENCOUNTER → 2025-02-15 | Outpatient (CLI) | payer MEDICARE, MEDICAID, SELFPAY ==
[2025-02-15 10:31] LABS: Basophils # (Auto) 0.0 Thou/mm3 (0.0-0.2); Basophils % (Auto) 1 % (0-2.5); Eosinophils # (Auto) 0.2 Thou/mm3 (0.0-0.5); Eosinophils % (Auto) 3 % (0-10); Hematocrit 39.7 % (36.0-46.0); Hemoglobin 13.3 g/dL (12.0-16.0); Immature Granulocytes Auto 0.03 Thou/mm3 (0.00-0.00); Lymphocytes # (Auto) 2.0 Thou/mm3 (1.0-4.8); Lymphocytes % (Auto) 33 % (10-50); Mean Corpuscular HGB Conc 33.5 g/dl (31.0-37.0); Mean Corpuscular Hemoglobin 29.6 pg (25.0-35.0); Mean Corpuscular Volume 88 fL (80-100); Monocytes # (Auto) 0.6 Thou/mm3 (0.0-0.8); Monocytes % (Auto) 9 % (0-12); Neutrophils # (Auto) 3.3 Thou/mm3 (1.8-7.7); Neutrophils % (Auto) 54 % (37-80); Nucleated Red Blood Cell # 0.00 Thou/mm3 (0.00-0.00); Nucleated Red Blood Cell % 0 /100 WBC (0); Platelet Count 247 Thou/mm3 (140-440); RDW Standard Deviation 46.9 fL (36.4-46.3); Red Blood Count 4.49 Miln/mm3 (4.00-5.20); White Blood Count 6.1 Thou/mm3 (3.6-11.0)
[2025-02-15 10:52] LABS: Alanine Aminotransferase 15 U/L (10-49); Albumin, Serum 4.0 gm/dL (3.4-4.8); Albumin/Globulin Ratio 1.4 (1.2-2.2); Alkaline Phosphatase 79 U/L (46-116); Anion Gap 8 (7-16); Aspartate Amino Transferase 18 U/L (0-34); BUN/Creatinine Ratio 13 Ratio (12-20); Bilirubin,Total 0.3 mg/dL (0.3-1.2); Blood Urea Nitrogen 9 mg/dL (9-23); Calcium 9.6 mg/dL (8.3-10.6); Calcium (Corrected) 9.6 mg/dL (8.5-10.1); Carbon Dioxide 27.0 mMol/L (20.0-31.0); Chloride 106 mMol/L (98-107); Creatinine (Component) 0.7 mg/dL (0.6-1.3); Globulin 2.9 gm/dL (2.3-3.5); Glucose 110 mg/dL (74-106); Osmolality,Calculated 280 (275-295); Potassium 4.4 mMol/L (3.4-5.1); Sodium 141 mMol/L (136-145); Thyroid Stimulating Hormone 7.82 uIU/mL (0.55-4.78); Total Protein 6.9 gm/dL (5.7-8.2); eGFR > 60 See Note
[2025-02-15 11:13] LABS: CA 15-3 4.8 U/mL (<32.4)
[2025-02-18 06:35] LABS: T3,Total* 80 ng/dL (76-181)
== END | disposition home or self-care (01) ==
PROVIDERS: PCP Physician Assistant; Referring Provider Internal Medicine Hematology & Oncology; Visit Provider Internal Medicine Hematology & Oncology
DX: C50.919 Malignant neoplasm of unspecified site of unspecified female breast (principal); C50.112 Malignant neoplasm of central portion of left female breast
CPT/HCPCS: 36415; 80053; 84443; 84480; 85025; 86300

== ENCOUNTER → 2025-03-09 | Outpatient (CLI) | payer MEDICARE, MEDICAID, SELFPAY ==
--- NOTE | 2025-03-09 09:30 | XR_ITS ---
Examination: Screening digital mammography, bilateral Computer aided detection 3-D breast Tomosynthesis, bilateral Date and time of exam: March 09, 2025 0925 hours, compared to mammograms dating to June 11, 2022 Indication: Screening Technique: Nonmagnified MLO, CC views of the breasts to been obtained, reconstructed from 3-D Tomosynthesis images. R2 computer aided detection program utilized for evaluation of suspicious masses and/or abnormal calcifications. 3-D Tomosynthesis images obtained. Findings: Scattered areas of fibroid rather density. Increased radiodensity, scar formation skin thickening left breast consistent with patient's history treated left breast cancer Benign calcifications No interval suspicious masses Impression: BI-RADS category II: Benign Findings. Recommend 1 year follow-up mammogram. Given the patient's history of left breast cancer, consider baseline bilateral breast sonography follow-up
== END | disposition home or self-care (01) ==
LOC: CDIM 09:12
PROVIDERS: Referring Provider Internal Medicine Hematology & Oncology; Visit Provider Internal Medicine Hematology & Oncology
DX: Z12.31 Encounter for screening mammogram for malignant neoplasm of breast (principal); R92.323 Mammographic fibroglandular density, bilateral breasts; C50.919 Malignant neoplasm of unspecified site of unspecified female breast; C50.112 Malignant neoplasm of central portion of left female breast
CPT/HCPCS: 77063; 77067

== ENCOUNTER → 2025-04-30 | Outpatient (CLI) | payer MEDICARE, MEDICAID, SELFPAY ==
--- NOTE | 2025-04-30 10:30 | ECHO_ITS ---
Patient Info Name: Katharina Golden Age: 69 years : 1955 Gender: Female Ht: 147 cm Wt: 70 kg BSA: 1.73 m2 BP: 166 / 88 mmHg HR: 68 bpm Exam Date: 04/30/2025 10:38 AM Admit Date: 04/30/2025 Site: [facility] Room Number: ECHo Patient Status: O Exam Type: CA echo doppler complete Property Condition Assessor: Melisa Gonzalez Ordering Physician: Neri Frank Referring Physician: Neri Frank Study Info Indications Malignant neoplasm of central portion of left female breast - Primary Location: SDIM Left Ventricular Outflow Tract Name Value Normal LVOT 2D LVOT Diameter 1.8 cm LVOT Doppler LVOT Peak Velocity 92 cm/s LVOT Mean Gradient 2 mmHg LVOT VTI 25 cm LVOT VTI/AV VTI Ratio 0.8 LVOT Stroke Volume 63 ml Pulmonic Valve Name Value Normal PV Doppler PV Peak Velocity 95 cm/s PV Regurgitation Doppler AK Peak End Diastolic Velocity 140 cm/s Mitral Valve Name Value Normal MV Doppler MV Decel Flagler 392 cm/s2 MV PHT 58 ms MV Area (PHT) 3.8 cm2 4.0-5.0 MV Diastolic Function MV E Peak Velocity 79 cm/s MV A Peak Velocity 90 cm/s MV E/A 0.9 MV Annular TDI MV Septal e' Velocity 9.0 cm/s MV E/e' (Septal) 8.7 MV Lateral e' Velocity 9.5 cm/s MV E/e' (Lateral) 8.3 MV e' Average 9.25 cm/s MV E/e' (Average) 8.5 Tricuspid Valve Name Value Normal TV Regurgitation Doppler TR Peak Velocity 185 cm/s Estimated PAP/RSVP RA Pressure 3 mmHg <=5 PA Systolic Pressure 17 mmHg <36 RV Systolic Pressure 17 mmHg <36 TV Annular TDI TV Lateral Vidhi s' Velocity 11.2 cm/s >=9.5 Aortic Valve Name Value Normal AV 2D/MM AV Cusp Sep (MM) 1.4 cm AV Doppler AV Peak Velocity 123 cm/s AV Mean Gradient 4 mmHg AV VTI 32 cm AV Area (Cont Eq VTI) 2.0 cm2 >=3.0 AV Area (Cont Eq Zion) 1.9 cm2 AV DI (Zion) 0.74 AV Regurgitation 2D LVOT Area 2.5 cm2 Ventricles Name Value Normal LV Dimensions 2D/MM IVS Diastolic Thickness (2D) 0.8 cm 0.6-0.9 LVID Diastole (2D) 3.9 cm 3.8-5.2 LVIW Diastolic Thickness (2D) 0.9 cm 0.6-0.9 LVID Systole (2D) 2.2 cm 2.2-3.5 LVOT Diameter 1.8 cm LV Mass (2D Cubed) 97.36 g 67.00-162.00 LV Mass Index (2D Cubed) 56 g/m2 43-95 Relative Wall Thickness (2D) 0.46 <=0.42 IVS/LVIW Diastolic Thickness (2D) 0.89 0.00-1.50 LV Fractional Shortening/Ejection Fraction 2D/MM LV Fractional Shortening (2D) 44 % 27-45 LV EF (2D Teichholz) 75 % RV Dimensions 2D/MM TV Lateral Vidhi s' Velocity 11.2 cm/s >=9.5 Atria Name Value Normal LA Dimensions LA Volume (4C A-L) 37 ml LA Volume (BP A-L) 40 ml Left Ventricle Left ventricular chamber dimension is normal. Left ventricular systolic function is normal with visually estimated ejection fraction of 60-65%. There is mild concentric hypertrophy noted in the left ventricle. Left ventricular segmental wall motion is normal. There is normal diastolic function in the left ventricle. Right Ventricle Right ventricular chamber dimension is normal. Right ventricular systolic function is normal. Left Atrium Left atrial chamber dimension is normal. Right Atrium Right atrial chamber dimension is normal. Aortic Valve The aortic valve is trileaflet. There is no aortic valve sclerosis. There is no aortic valve stenosis with a peak velocity of 123 cm/s, mean gradient of 4 mmHg, and aortic valve area of 2.0 cm2. There is no aortic valve regurgitation. Pulmonic Valve The pulmonic valve is normal. There is no pulmonic valve stenosis. There is mild pulmonic regurgitation. Mitral Valve The mitral valve has normal leaflets. There is no mitral valve stenosis. There is no mitral valve regurgitation. Tricuspid Valve The tricuspid valve leaflets are normal. There is no tricuspid valve stenosis. There is trace tricuspid valve regurgitation. No pulmonary hypertension, estimated pulmonary arterial systolic pressure is 17 mmHg and systemic blood pressure of 166 mmHg in systole. Pericardium/Pleural The pericardium appears normal. There is no pericardial effusion. No pleural effusion visualized. Inferior Vena Cava Normal inferior vena cava with >50% collapse upon inspiration consistent with normal right atrial pressure, 3 mmHg. Aorta The aortic measurements are indexed to age and body surface area. The aortic root at the sinus of Valsalva is not well visualized. The prox ascending aorta is not well visualized. Summary 1. Left ventricle size is normal and systolic function is normal. Estimated ejection fraction is 60-65%. There is normal diastolic function. There is mild concentric hypertrophy noted. 2. Right ventricle chamber size is normal and systolic function is normal. Estimated RVSP is 17 mmHg. 3. There is trace tricuspid valve regurgitation. 4. mild pulmonic valve regurgitation. 5. Normal IVC with estimated RA pressure 3 mmHg. 6. compared to prior study 01/17/25 same. Report Signatures Finalized by Leonila Ch on 05/01/2025 12:53 AM
== END | disposition home or self-care (01) ==
LOC: SDIM 10:25
PROVIDERS: PCP Physician Assistant; Referring Provider Internal Medicine Hematology & Oncology; Visit Provider Internal Medicine Hematology & Oncology
DX: I08.1 Rheumatic disorders of both mitral and tricuspid valves (principal); I37.1 Nonrheumatic pulmonary valve insufficiency; I51.7 Cardiomegaly; C50.112 Malignant neoplasm of central portion of left female breast
CPT/HCPCS: 93306

== ENCOUNTER → 2025-05-17 | Outpatient (CLI) | payer MEDICARE, MEDICAID, SELFPAY ==
[2025-05-17 10:40] LABS: Basophils # (Auto) 0.1 Thou/mm3 (0.0-0.2); Basophils % (Auto) 1 % (0-2.5); Eosinophils # (Auto) 0.2 Thou/mm3 (0.0-0.5); Eosinophils % (Auto) 3 % (0-10); Hematocrit 41.5 % (36.0-46.0); Hemoglobin 13.8 g/dL (12.0-16.0); Immature Granulocytes Auto 0.03 Thou/mm3 (0.00-0.00); Lymphocytes # (Auto) 2.3 Thou/mm3 (1.0-4.8); Lymphocytes % (Auto) 37 % (10-50); Mean Corpuscular HGB Conc 33.3 g/dl (31.0-37.0); Mean Corpuscular Hemoglobin 29.1 pg (25.0-35.0); Mean Corpuscular Volume 87 fL (80-100); Monocytes # (Auto) 0.5 Thou/mm3 (0.0-0.8); Monocytes % (Auto) 8 % (0-12); Neutrophils # (Auto) 3.3 Thou/mm3 (1.8-7.7); Neutrophils % (Auto) 51 % (37-80); Nucleated Red Blood Cell # 0.00 Thou/mm3 (0.00-0.00); Nucleated Red Blood Cell % 0 /100 WBC (0); Platelet Count 244 Thou/mm3 (140-440); RDW Standard Deviation 43.4 fL (36.4-46.3); Red Blood Count 4.75 Miln/mm3 (4.00-5.20); White Blood Count 6.3 Thou/mm3 (3.6-11.0)
[2025-05-17 10:50] LABS: Alanine Aminotransferase 17 U/L (10-49); Albumin, Serum 4.6 gm/dL (3.4-4.8); Albumin/Globulin Ratio 1.6 (1.2-2.2); Alkaline Phosphatase 82 U/L (46-116); Anion Gap 9 (7-16); Aspartate Amino Transferase 20 U/L (0-34); BUN/Creatinine Ratio 14 Ratio (12-20); Bilirubin,Total 0.5 mg/dL (0.3-1.2); Blood Urea Nitrogen 10 mg/dL (9-23); Calcium 9.6 mg/dL (8.3-10.6); Calcium (Corrected) 9.6 mg/dL (8.5-10.1); Carbon Dioxide 27.7 mMol/L (20.0-31.0); Chloride 106 mMol/L (98-107); Creatinine (Component) 0.7 mg/dL (0.6-1.3); Free T4 (Free Thyroxine) 1.18 ng/dL (0.89-1.76); Globulin 2.8 gm/dL (2.3-3.5); Glucose 107 mg/dL (74-106); Osmolality,Calculated 283 (275-295); Potassium 4.4 mMol/L (3.4-5.1); Sodium 143 mMol/L (136-145); Thyroid Stimulating Hormone 0.09 uIU/mL (0.55-4.78); Total Protein 7.4 gm/dL (5.7-8.2); eGFR > 60 See Note
[2025-05-24 07:01] LABS: T3,Total* 137 ng/dL (76-181)
== END | disposition home or self-care (01) ==
LOC: COPL 09:17
PROVIDERS: PCP Nurse Practitioner Family; Referring Provider Nurse Practitioner Family; Visit Provider Internal Medicine Hematology & Oncology
DX: C50.919 Malignant neoplasm of unspecified site of unspecified female breast (principal); E03.9 Hypothyroidism, unspecified
CPT/HCPCS: 36415; 80053; 84439; 84443; 84480; 85025

== ENCOUNTER 2025-05-18 11:24 | Outpatient (RCR) | payer MEDICARE, MEDICAID, SELFPAY ==
--- NOTE | 2025-05-23 00:18 | CTCFLWUP_ITS ---
Patient: MARYA GOLDEN : 1955 Page 2 of 3 FOLLOW UP NOTE DATE OF SERVICE: 05/18/2025 NAME: MARYA GOLDEN ACCOUNT: [id number] : 1955 AGE: 69 INTERVAL HISTORY: Subjective: Patient doing well with no new complaints. Medications and Supplements - Immunotherapy - For one year - Treatment should be done by December 09 - Yearly injection for bones - To continue for 5 years - Thyroid medication - Due to immunotherapy - Can cause weight gain Review of Systems General: Positive for weight gain. Psychiatric: Positive for generalized anxiety. 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 S/p ultrasound-guided biopsy (11/21/2023). Ms. Golden is started on neoadjuvant chemotherapy with pembrolizumab, Taxol and carboplatin on 12/31/2023 Hypothyroidism Hypertension Hypercholesterolemia Osteoporosis (DEXA scan 12/09/2023) Complete response at the time of left partial mastectomy with sentinel lymph nodes on 07/14/2024 revealed a TT T0 N0 triple negative followed by 1 year of Keytruda DATE OF DIAGNOSIS: 11/21/2023 STAGE/TNM: Stage IIIa, triple negative, poorly differentiated infiltrating ductal carcinoma of the left breast with left axillary adenopathy. Completed keynote trial chemotherapy with immunotherapy on 12/09/2024. Had complete response at the time of surgery TREATMENT HISTORY: Care?Plan Start?Date Cycle Day Intent TNBC?Pembro?17?cy?TaxCar?4?cy?AC?4?cy?Keynote?522 12/31/2023 1 21 Induction-Primary Reclast 12/25/2023 1 365 Palliative HISTORY OF PRESENT ILLNESS: Marya Golden is a 69-year-old SPA speaking female with history of hypothyroidism, hypertension has the following oncology history. patient is here for follow-up. She completed 4 cycles of Taxol and carboplatin chemotherapy along with pembrolizumab. She has tolerated treatment well. She says she does not feel any pain in her breast anymore 06/11/2022: Ms. Golden had bilateral screening mammograms done 10/17/2022: Left breast diagnostic mammogram and ultrasound Ms. Golden was aware that she needs to have the biopsy done. Unfortunately she decided not to have it. The reason she states is that she is scared. 10/15/2023: Bilateral breast ultrasound? 11/21/2023: Ultrasound-guided percutaneous biopsy of the left breast nodule 12/05/2023: PET/CT scan? 12/06/2023: Left axillary ultrasound 12/09/2023: Bone density test 12/18/2023: Echocardiogram showed LVEF of 60-65%. 12/31/2023: Ms. Golden is started on neoadjuvant pembrolizumab, Taxol and carboplatin chemotherapy. 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 Tobacco?Use:?Denies ETOH?Use:?Denies Drug?Note:?Denies Social?History?Note:?Lives?with?husabdn CRATE ICER HISTORY: Menarche?-?Age:?17 Menopause:?age?[age] :?8 Live?Births:?7 Age?1st?:?18 Gynecological?Note:?1?miscarraige MEDICATIONS: 1. Citracal + D Slow Release - 600 mg-12.5 mcg (500 unit) 1 tab one tab po twice a day 2. Compazine - 10 mg 1 tab Daily 3. levothyroxine - 50 mcg 1 tab Daily 4. losartan - 100 mg 1 tab Daily 5. losartan - 50 mg 1 tab Daily 6. ondansetron - 8 mg 1 tab 1 tablet every 8 hrs as needed 7. Senna Plus - 8.6-50 mg 1 tab Daily Medications Last Reconciled by Marya Garcia MD on 05/18/2025 ALLERGIES: No Known Drug Allergies REVIEW OF SYSTEMS: A complete 14-point review of systems was performed and is negative except as noted in interval history. PHYSICAL EXAMINATION: VITAL SIGNS: Temperature?97.8, B/P?147/88, Oxygen?Saturation?96% Weight?154?lbs PAIN: 0 - No pain GENERAL APPEARANCE: Appears well, in no apparent distress, appropriately interactive. HEENT: Normocephalic, no temporal wasting, normal conjunctiva, no scleral icterus, normal hearing, lips without lesions, neck normal range of motion. CARDIOVASCULAR: Not assessed. PULMONARY: Normal respiratory effort, no respiratory distress or use of accessory muscles, speaking in full sentences, no tachypnea. EXTREMITIES: No pedal edema or cyanosis. SKIN: Normal skin appearance. NEUROLOGIC: Alert and oriented x4. PSHYCHIATRIC: Appropriate affect, mood normal, behavior normal, intact thought and speech. LABORATORY DATA: I have personally reviewed and interpreted each of the patient?s relevant lab tests, abnormal findings are below: Date 02/15/25 05/17/25 ??WHITE?BLOOD?COUNT?(Thou/mm3) 6.1 6.3 ??RED?BLOOD?COUNT?(Miln/mm3) 4.49 4.75 ??HEMOGLOBIN?(gm/dl) 13.3 13.8 ??HEMATOCRIT?(%) 39.7 41.5 ??PLATELET?COUNT?(Thou/mm3) 247 244 ??NEUTROPHILS?%,?AUTO?(%) 54 51 ??LYMPH?%,?AUTO?(%) 33 37 ??NEUTROPHILS,?AUTO?(Thou/mm3) 3.3 3.3 ??GLUCOSE,RANDOM?(mg/dL) 110?H 107?H ??BLOOD?UREA?NITROGEN?(mg/dL) 9 10 ??CREATININE?(mg/dL) 0.70 0.70 ??SODIUM?(mmol/L) 141 143 ??POTASSIUM?(mmol/L) 4.4 4.4 ??CHLORIDE?(mmol/L) 106 106 ??CrCl?(CandG)?(ml/min) 69.90 69.90 ??AST/SGOT?(Unit/L) 18 20 ??ALT/SGPT?(Unit/L) 15 17 ??ALKALINE?PHOSPHATASE?(Unit/L) 79 82 ??BILIRUBIN,?TOTAL?(mg/dL) 0.3 0.5 ??PROTEIN?TOTAL?(gm/dl) 6.9 7.4 ??ALBUMIN,?SERUM?(gm/dl) 4.0 4.6 ??GLOBULIN?(gm/dl) 2.9 2.8 ??ALBUMIN/GLOBULIN?RATIO 1.4 1.6 ??CALCIUM,?SERUM?(mg/dL) 9.6 9.6 ??CALCIUM?SERUM?(CORRECTED)?(mg/dL) 9.6 9.6 ASSESSMENT/PLAN: #1 stage II aT3 N1 M0 triple negative poorly differentiated infiltrating ductal carcinoma of left breast with axillary lymphadenopathy S/p ultrasound-guided guided biopsy in November 21, 2023 at least 7 cm mobile mass in the left breast no adenopathy in the axilla On neoadjuvant chemotherapy with keynote trial. Patient is doing well with no palpable mass Patient will continue adjuvant Keytruda for 1 year Assessment and Plan: Chantel MayersRhoda, female patient with history of triple negative breast cancer, status post chemotherapy, radiation, and surgery, currently on immunotherapy and thyroid medication. Breast Cancer (Triple Negative) Assessment: Patient has completed chemotherapy and radiation therapy for triple negative breast cancer. Surgical specimen showed no residual cancer. Currently on immunotherapy regimen scheduled to complete by December 09, 2024. Treatment plan includes yearly injection for bone health for 5 years. Prognosis is favorable, with 85% of patients being cancer-free at 5 years with this treatment protocol. Completed immunotherapy in November 2024 Echo is stable thyroid Dysfunction Assessment: Patient is on thyroid medication due to immunotherapy-induced thyroid inflammation. TSH is less than 1 Stop levothyroid 75 and start on levothyroid 25 mcg Generalized Anxiety Disorder Assessment: Patient has been diagnosed with generalized anxiety disorder. No specific symptoms or severity discussed in this encounter. Plan: - Continue current management and follow-up with primary care Preventive Care Assessment: Patient requires ongoing cancer screening and preventive care. Plan: - Continue screening for colon cancer (frequency not specified) - Continue Pap smear screening (frequency not specified) Weight Management Assessment: Patient counseled on potential weight gain related to breast cancer treatment and hormone imbalance. Thyroid dysfunction may also be contributing to weight gain. Plan: - Educate patient on mindful eating habits #3 hypertension hypercholesterolemia to be followed by PCP ORDERS: Order # Description [id number] CBC + Comprehensive Metabolic Panel [id number] Lab Appointment [id number] CBC + Comprehensive Metabolic Panel [id number] Lab Appointment [id number] CBC + Comprehensive Metabolic Panel [id number] Lab Appointment [id number] CBC + Comprehensive Metabolic Panel [id number] Lab Appointment RETURN TO CLINIC: I reviewed the diagnosis, prognosis, and recommended treatment/procedure options with the patient (and/or their legal business process representative), including the potential benefits, risks, side effects and alternative therapies. We also discussed the option of no treatment and the possibility of clinical trial participation, if applicable. All questions were addressed, and they demonstrated understanding. They provided informed consent to proceed with the proposed plan of care. BILLING AND COMPLIANCE: I reviewed external records from providers outside my specialty as summarized above. I spent a total of 50 minutes on this patient?s care on the day of their visit excluding time spent related to any billed procedures. This time includes time spent with the patient as well as time spent documenting in the medical record, reviewing patients records and tests, obtaining history, placing orders, communicating with other healthcare professionals, counseling the patient, family or caregiver, and/or care coordination for the diagnoses above. Electronically Signed by: Neri Frank MD T: 12:16 AM CC: GUERDA Hawkins PCP: [facility] Referring: [facility])[place] This document was completed utilizing speech recognition software. Grammatical errors, random word insertions, pronoun errors, and incomplete sentences are an occasional consequence of this system due to software limitations, ambient noise, and hardware issues. Any formal questions or concerns about the content, text or information contained within the body of this dictation should be directly addressed to the provider for clarification.
== END 2025-05-23 23:59 | disposition home or self-care (01) ==
LOC: SCTC 11:24
PROVIDERS: PCP Nurse Practitioner Family; Referring Provider Nurse Practitioner Family; Visit Provider Internal Medicine Hematology & Oncology
DX: C50.412 Malignant neoplasm of upper-outer quadrant of left female breast (principal); Z17.421 Hormone receptor negative with human epidermal growth factor receptor 2 negative status; Z92.3 Personal history of irradiation; Z92.21 Personal history of antineoplastic chemotherapy; F41.1 Generalized anxiety disorder; R63.5 Abnormal weight gain
CPT/HCPCS: 99212; G0463

== ENCOUNTER → 2025-05-25 | Outpatient (CLI) | payer MEDICARE, MEDICAID, SELFPAY ==
[2025-05-25 08:14] LABS: Misc Send Out* See Sep Rpt
[2025-05-25 10:06] LABS: Basophils # (Auto) 0.0 Thou/mm3 (0.0-0.2); Basophils % (Auto) 1 % (0-2.5); Eosinophils # (Auto) 0.2 Thou/mm3 (0.0-0.5); Eosinophils % (Auto) 4 % (0-10); Hematocrit 40.3 % (36.0-46.0); Hemoglobin 13.4 g/dL (12.0-16.0); Immature Granulocytes Auto 0.02 Thou/mm3 (0.00-0.00); Lymphocytes # (Auto) 2.2 Thou/mm3 (1.0-4.8); Lymphocytes % (Auto) 38 % (10-50); Mean Corpuscular HGB Conc 33.3 g/dl (31.0-37.0); Mean Corpuscular Hemoglobin 29.3 pg (25.0-35.0); Mean Corpuscular Volume 88 fL (80-100); Monocytes # (Auto) 0.4 Thou/mm3 (0.0-0.8); Monocytes % (Auto) 7 % (0-12); Neutrophils # (Auto) 2.9 Thou/mm3 (1.8-7.7); Neutrophils % (Auto) 50 % (37-80); Nucleated Red Blood Cell # 0.00 Thou/mm3 (0.00-0.00); Nucleated Red Blood Cell % 0 /100 WBC (0); Platelet Count 251 Thou/mm3 (140-440); RDW Standard Deviation 44.5 fL (36.4-46.3); Red Blood Count 4.57 Miln/mm3 (4.00-5.20); White Blood Count 5.7 Thou/mm3 (3.6-11.0)
[2025-05-25 10:27] LABS: Alanine Aminotransferase 13 U/L (10-49); Albumin, Serum 4.6 gm/dL (3.4-4.8); Alkaline Phosphatase 78 U/L (46-116); Anion Gap 9 (7-16); Aspartate Amino Transferase 19 U/L (0-34); BUN/Creatinine Ratio 11 Ratio (12-20); Bilirubin,Total 0.5 mg/dL (0.3-1.2); Blood Urea Nitrogen 8 mg/dL (9-23); Calcium 9.6 mg/dL (8.3-10.6); Calcium (Corrected) 9.6 mg/dL (8.5-10.1); Carbon Dioxide 25.8 mMol/L (20.0-31.0); Chloride 106 mMol/L (98-107); Creatinine (Component) 0.7 mg/dL (0.6-1.3); Glucose 101 mg/dL (74-106); Osmolality,Calculated 279 (275-295); Potassium 4.4 mMol/L (3.4-5.1); Sodium 141 mMol/L (136-145); eGFR > 60 See Note
[2025-05-25 12:53] LABS: Albumin/Globulin Ratio 1.6 (1.2-2.2); Globulin 2.9 gm/dL (2.3-3.5); Total Protein 7.5 gm/dL (5.7-8.2)
== END | disposition home or self-care (01) ==
LOC: SCTO 07:50
PROVIDERS: PCP Physician Assistant; Referring Provider Internal Medicine Hematology & Oncology; Visit Provider Internal Medicine Hematology & Oncology
DX: C50.919 Malignant neoplasm of unspecified site of unspecified female breast (principal); C50.112 Malignant neoplasm of central portion of left female breast
CPT/HCPCS: 36415; 80053; 85025